=== PATIENT | male | born 1990 | race Caucasian/White ===

== ENCOUNTER → 2016-10-28 | Outpatient (CLI) | payer OTHER ==
[~2016-10-28] MED LIST: CLIN300C; METO10TA2; PERCOCET PO; TYLE325T5 PO; VICO5TAB
--- NOTE | 2016-10-29 01:50 | REP ---
Clinical: Chest pain with history of pneumonia. Technique: PA and lateral. Comparison: 07/08/2016. Findings: Mediastinum and cardiac silhouette are within normal limits and stable. Lung chadwick demonstrate chronic linear plate-like atelectasis/scarring in the right mid lung zone. No acute consolidation, effusion, or pneumothorax. Skeletal structures intact. Impression: Chronic stable changes. No acute cardiopulmonary process or focal consolidation Signed by Min Mcwilliams MD 10/29/2016 01:43 A
== END | disposition home or self-care (01) ==
LOC: M RAD 11:47
PROVIDERS: ATTEND Internal Medicine Pulmonary Disease
DX: R91.8 Other nonspecific abnormal finding of lung field (principal); J98.4 Other disorders of lung

== ENCOUNTER → 2016-12-10 | Outpatient (CLI) | payer SELFPAY ==
--- NOTE | 2016-12-10 15:35 | REP ---
CT study of the chest without contrast: History: Cryptogenic organizing pneumonia. Comparison CT studies are reviewed, the most recent of these is from August 12, 2016. The most remote is dated April 25, 2009. CT findings: The lung parenchyma are much improved. There are still scattered small subcentimeter noncalcified pulmonary nodules bilaterally. None of these is over 5-6 mm. No cavitary lesion is seen. Many are improved from the August 12, [address] study[address] No new lesion is appreciated. There is a post wedge resection suture line visible in the right middle lobe distribution along the fissure unchanged. No pleural or pericardial effusion is seen. No hilar or mediastinal mass or adenopathy is observed. No adrenal lesion is seen. No splenic or hepatic lesion is observed. Impression: Lung chadwick much improved. Post surgical changes on the right. Multiple small subcentimeter nodular densities generally less prominent than on the most recent prior study. No new lesion seen. Signed by Gopal Baron MD 12/10/2016 04:27 P
== END ==
LOC: M RAD 13:48
PROVIDERS: ATTEND Internal Medicine Pulmonary Disease
DX: J84.116 Cryptogenic organizing pneumonia (principal); R91.8 Other nonspecific abnormal finding of lung field

== ENCOUNTER → 2017-06-17 | Outpatient (CLI) | payer BC, OTHER, SELFPAY ==
--- NOTE | 2017-06-17 16:55 | REP ---
Clinical: Cryptogenic organizing pneumonia. Comparison: 12/10/2016. Findings: The bilateral lung chadwick are well-aerated, relatively symmetric and clear. No focal consolidation, significant nodule, mass lesion or pleural effusion is appreciated. Small scattered areas of scarring, calcification, and noncalcified densities have either resolved or remain stable. Tracheobronchial tree is patent. No axillary, hilar, or mediastinal adenopathy is identified. Mediastinum demonstrates normal thoracic aorta and heart/pericardium. Limited upper abdomen demonstrates normal bilateral adrenal glands. Surrounding musculoskeletal structures without focal osseous abnormality. Impression: 1. No acute mediastinal or pleuroparenchymal process. 2. Previously identified scattered areas of interstitial prominence and small nodular densities have either resolved or remain stable. Signed by Min Mcwilliams MD 06/17/2017 04:47 P
== END ==
LOC: M RAD 16:08
PROVIDERS: ATTEND Internal Medicine Pulmonary Disease
DX: J84.116 Cryptogenic organizing pneumonia (principal); R91.8 Other nonspecific abnormal finding of lung field

== ENCOUNTER 2018-06-26 04:43 | Emergency (ER) | payer SELFPAY, BC, OTHER ==
[2018-06-26] MEDS: LIDOCAINE 2% MDV 20 ML VIAL SC (06:00)
[2018-06-26] MEDS: ADACEL/BOOSTRIX VACCINE (DIPHTH/PERTUSS/ACELL/TETANUS)0.5ML SYR (90715) IM (06:25)
== END 2018-06-26 07:40 | disposition home or self-care (01) ==
LOC: M ED 04:43
DX: S01.01XA Laceration without foreign body of scalp, initial encounter (principal); S01.311A Laceration without foreign body of right ear, initial encounter; F10.120 Alcohol abuse with intoxication, uncomplicated; W25.XXXA Contact with sharp glass, initial encounter; Y92.89 Other specified places as the place of occurrence of the external cause; F17.210 Nicotine dependence, cigarettes, uncomplicated; Z86.711 Personal history of pulmonary embolism
CPT/HCPCS: 90715

== ENCOUNTER 2018-07-03 09:28 | Emergency (ER) | payer SELFPAY | END 2018-07-03 10:05 | disposition home or self-care (01) | LOC: M ED 09:28 | DX: Z48.02 Encounter for removal of sutures (principal) | CPT/HCPCS: 99283 ==

== ENCOUNTER 2018-08-17 20:08 | Emergency (ER) | payer BC, SELFPAY ==
[2018-08-17 20:52] LABS: HEMATOCRIT 41.7 % (42.0-52.0); HEMOGLOBIN 13.5 g/dl (13.5-17.5); MEAN CORPUSCULAR HEMOGLOBIN 20.8 pg (27.0-33.0); MEAN CORPUSCULAR HGB CONC 32.4 g/dl (32.0-36.5); MEAN CORPUSCULAR VOLUME 64.4 fl (80.0-96.0); PLATELET COUNT, AUTOMATED 316 10^3/uL (150-450); RED BLOOD COUNT 6.48 10^6/uL (4.30-6.10); RED CELL DISTRIBUTION WIDTH 17.3 % (11.5-14.5); WHITE BLOOD COUNT 10.9 10^3/uL (4.0-10.0)
[2018-08-17 21:00] LABS: AMPHETAMINES LEVEL URINE NEGATIVE (NEGATIVE); BARBITURATES URINE NEGATIVE (NEGATIVE); BENZODIAZEPINES URINE NEGATIVE (NEGATIVE); CANNABINOIDS URINE NEGATIVE (NEGATIVE); COCAINE METABOLITE URINE NEGATIVE (NEGATIVE); METHADONE URINE NEGATIVE (NEGATIVE); OPIATES URINE NEGATIVE (NEGATIVE); PHENCYCLIDINE URINE NEGATIVE (NEGATIVE)
[2018-08-17] MEDS: LORazepam 2 MG/ML VIAL (J2060) IV (21:00)
[2018-08-17 21:22] LABS: ACETAMINOPHEN LEVEL < 2.0 UG/ML (10.0-30.0); ALBUMIN 4.3 GM/DL (3.2-5.2); ALBUMIN/GLOBULIN RATIO 1.48 (1.00-1.93); ALKALINE PHOSPHATASE 79 U/L (45-117); ALT/SGPT 48 U/L (12-78); ANION GAP 8 MEQ/L (8-16); AST/SGOT 29 U/L (7-37); BILIRUBIN,DIRECT 0.2 MG/DL (0.0-0.2); BILIRUBIN,TOTAL 0.8 MG/DL (0.2-1.0); BLOOD UREA NITROGEN 12 MG/DL (7-18); CALCIUM LEVEL 9.3 MG/DL (8.5-10.1); CARBON DIOXIDE LEVEL 26 MEQ/L (21-32); CHLORIDE LEVEL 104 MEQ/L (98-107); CREATININE FOR GFR 1.08 MG/DL (0.70-1.30); ETHYL ALCOHOL (ETHANOL) 0.078 % (0.000-0.010); GLOMERULAR FILTRATION RATE > 60.0 (>60); GLUCOSE, FASTING 71 MG/DL (70-100); POTASSIUM SERUM 3.7 MEQ/L (3.5-5.1); SALICYLATE LEVEL 3.5 MG/DL (5.0-30.0); SODIUM LEVEL 138 MEQ/L (136-145); TOTAL PROTEIN 7.2 GM/DL (6.4-8.2)
[2018-08-17] MEDS: MULTIVITAMIN -ADULT INJECTION 10 ML, THIAMINE INJection 100 MG, FOLIC ACID 1 MG in NS 1... IV (21:40)
[2018-08-18] MEDS: OXAZEPAM 15 MG CAP PO (07:45)
== END 2018-08-18 11:21 ==
LOC: M ED 20:08
DX: R45.851 Suicidal ideations (principal); F17.210 Nicotine dependence, cigarettes, uncomplicated; Z81.8 Family history of other mental and behavioral disorders
CPT/HCPCS: J2060

== ENCOUNTER → 2018-08-29 | Outpatient (CLI) | payer BC | LOC: M OUTALCOH 07:58 | DX: F10.20 Alcohol dependence, uncomplicated (principal); F15.20 Other stimulant dependence, uncomplicated ==

== ENCOUNTER → 2018-09-15 | Outpatient (REF) | payer BC ==
[2018-09-20 14:17] LABS: AMPHETAMINE SCREEN, URINE Negative ng/mL (Cutoff=1000); BARBITURATES SCREEN, URINE Negative ng/mL (Cutoff=200); BENZODIAZEPINES, URINE SCREEN Negative ng/mL (Cutoff=200); CANNABINOID SCREEN, URINE See Final Results ng/mL (Cutoff=20); CANNABINOID, URINE Positive (Cutoff=20); CARBOXY THC (GC/MS) 75 ng/mL (Cutoff=10); COCAINE SCREEN, URINE Negative ng/mL (Cutoff=300); CREATININE, URINE 132.7 mg/dL (20.0-300.0); FENTANYL URINE SCREEN Negative pg/mL (Cutoff=2000); METHADONE, URINE SCREEN Negative ng/mL (Cutoff=300); OPIATE SCREEN, URINE Negative ng/mL (Cutoff=300); OXYCODONE, SCREEN, URINE Negative ng/mL (Cutoff=100); PCP SCREEN, URINE Negative ng/mL (Cutoff=25); SPECIFIC GRAVITY, URINE 1.024 (.); pH, URINE 5.8 (4.5-8.9)
== END ==
LOC: M SFHCPLAZ 16:55
DX: Z87.898 Personal history of other specified conditions (principal)

== ENCOUNTER 2020-03-11 20:47 | Emergency (ER) | payer BC, MEDICAID, OTHER ==
[~2020-03-11] VITALS: Ht 180.3 cm; Wt 101.6 kg
[2020-03-11 20:47] VITALS: BP 132/84
[2020-03-11] MEDS ORDERED: LIDOCAINE W/EPINEPHRINE 1% 20ML VIAL SC ONE (21:30)
== END 2020-03-11 21:55 | disposition home or self-care (01) ==
LOC: M ED 20:47
DX: S61.411A Laceration without foreign body of right hand, initial encounter (principal); W26.0XXA Contact with knife, initial encounter; Y92.000 Kitchen of unspecified non-institutional (private) residence as the place of occurrence of the external cause; Y93.E9 Activity, other interior property and clothing maintenance; Y99.9 Unspecified external cause status

== ENCOUNTER 2020-08-31 11:58 | Emergency (ER) | payer OTHER ==
[~2020-08-31] VITALS: Ht 180.3 cm; Wt 90.1 kg
[2020-08-31] MEDS ORDERED: MORPHINE 4 MG/ML 1ML VIAL/SYRINGE (J2270) IV ONE (14:15)
[2020-08-31] MEDS ORDERED: ONDANSETRON 4MG/2ML VIAL IV ONE (14:15)
--- NOTE | 2020-08-31 14:36 | REP ---
INDICATION: sob, pleuritic cp COMPARISON: 10/28/2016 TECHNIQUE: PA and lateral. FINDINGS: The mediastinum and cardiac silhouette are normal. The lung chadwick are clear and without acute consolidation, effusion, or pneumothorax. The skeletal structures are intact and normal. IMPRESSION: No acute cardiopulmonary process. <Electronically signed by Min Mcwilliams > 08/31/20 [id number]
[2020-08-31 14:46] LABS: BASO % 0.3 % (0.0-1.0); EOS # 0.1 10^3/uL (0.0-0.5); EOS % 0.3 % (0.0-3.0); HEMATOCRIT 43.3 % (42.0-52.0); HEMOGLOBIN 13.1 g/dl (13.5-17.5); LYMPH # 2.5 10^3/uL (1.5-5.0); LYMPH % 16.4 % (24.0-44.0); MEAN CORPUSCULAR HEMOGLOBIN 18.4 pg (27.0-33.0); MEAN CORPUSCULAR HGB CONC 30.3 g/dl (32.0-36.5); MEAN CORPUSCULAR VOLUME 60.7 fl (80.0-96.0); MONO # 1.6 10^3/uL (0.0-0.8); MONO % 10.6 % (0.0-5.0); NEUTROPHILS % 71.9 % (36.0-66.0); PLATELET COUNT, AUTOMATED 234 10^3/uL (150-450); RED BLOOD COUNT 7.13 10^6/uL (4.30-6.10); WHITE BLOOD COUNT 15.3 10^3/uL (4.0-10.0)
[2020-08-31] MEDS ORDERED: ISOVUE-370 76% 100ML VIAL As Ordered ONE (15:08)
[2020-08-31 15:09] LABS: ERYTHROCYTE SEDIMENTATION RATE 5 mm/hr (0-15)
[2020-08-31 15:12] LABS: ALBUMIN 3.1 GM/DL (3.2-5.2); ALT/SGPT 74 U/L (12-78); BILIRUBIN,DIRECT 0.3 MG/DL (0.0-0.2); BILIRUBIN,TOTAL 0.7 MG/DL (0.2-1.0); C REACTIVE PROTEIN QUANTITATIV 9.11 MG/DL (0.00-0.30); CK-MB VALUE MASS < 1.0 NG/ML (<3.6); CPK CREATINE PHOSPHOKINASE 57 U/L (39-308); LIPASE 103 U/L (73-393); MB/CK RELATIVE INDEX 1.75 (< OR =4); TOTAL PROTEIN 7.1 GM/DL (6.4-8.2); TROPONIN I < 0.02 NG/ML (< 0.10)
--- NOTE | 2020-08-31 15:34 | REP ---
INDICATION: r/o PE COMPARISON: 06/17/2017 TECHNIQUE: Axial contrast enhanced images from the thoracic inlet to the upper abdomen using pulmonary embolus technique with multiplanar re-formations. 75 ml Isovue 370 intravenous contrast material administered without complication. This CT examination was performed using the following dose reduction techniques: Automated exposure control, adjustment of mA and/or kv according to the patient's size, and use of iterative reconstruction technique. FINDINGS: Satisfactory enhancement of the pulmonary vasculature is achieved and no filling defects are identified to suggest pulmonary embolus. Further evaluation of the mediastinum demonstrates normal thoracic aorta, heart and pericardium. The bilateral lung chadwick are well aerated and clear without consolidation pleural effusion or pneumothorax. Tracheobronchial tree is patent. 3 mm nodule adjacent to the right major fissure (image 47) noted. No adenopathy noted. Surrounding musculoskeletal structures intact IMPRESSION: No evidence for pulmonary embolus. No acute mediastinal or pleural parenchymal process. 3 mm nodule in the right upper lobe. Based on Fleischner society criteria, low risk patients require no further investigation while high risk patients may warrant 1 year follow-up. <Electronically signed by Min Mcwilliams > 08/31/20 [id number]
--- NOTE | 2020-08-31 15:41 | REP ---
INDICATION: r/o peritonsillar abscess. COMPARISON: None. TECHNIQUE: Axial contrast-enhanced images were obtained from the thoracic inlet to the skull base with coronal and sagittal reformations using 100 cc Isovue 370 intravenous contrast material. This CT examination was performed using the following dose reduction techniques: Automated exposure control, adjustment of mA and/or kv according to the patient's size, and the use of iterative reconstruction technique. FINDINGS: Left parapharyngeal/peritonsillar multiloculated abscess is identified measuring roughly 11 x 23 x 32 mm with surrounding inflammatory change having mass effect on the airway which remains patent (series 501; images 16-40). Associated cervical adenopathy noted. Remainder of the examination appears relatively normal. Mild mucosal changes to the frontal/ethmoid sinuses noted. Perimolar abscess surrounding the posterior left mandibular molar tooth possibly related to the above-mentioned inflammatory process. IMPRESSION: 1. Left parapharyngeal/peritonsillar abscess with surrounding inflammatory changes and cervical adenopathy. <Electronically signed by Min Mcwilliams > 08/31/20 [id number]
[2020-08-31] MEDS ORDERED: dexameTHASONE 20MG/5ML VIAL (J1100 PER 1MG) IV ONE (16:00)
[2020-08-31] MEDS ORDERED: NS 1,000 ML IV ONE (16:00)
[2020-08-31] MEDS ORDERED: AMPICILLIN SOD/SULBACTAM SOD 3 GM in D5W MINI-BAG PLUS 100 ML IV ONE (16:00)
--- NOTE | 2020-08-31 18:34 | ECGEPIP ---
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
[2020-08-31 18:35] VITALS: BP 141/86
--- NOTE | 2020-09-02 11:09 | ED PDOC ---
Post-Departure Follow-Up certified letter sent to pt re pulmonary nodule. pt needs fu. please obtain pcp and fax report. if no pcp refer to [facility] and fax ct angio report . Jesenia Morales MD Sep 02, 2020 11:09
== END 2020-08-31 18:44 | disposition short-term general hospital (02) ==
LOC: M ED 11:58
DX: J36 Peritonsillar abscess (principal); R91.1 Solitary pulmonary nodule; F41.9 Anxiety disorder, unspecified; F32.9 Major depressive disorder, single episode, unspecified; J98.4 Other disorders of lung; Z86.711 Personal history of pulmonary embolism; F17.200 Nicotine dependence, unspecified, uncomplicated
CPT/HCPCS: 36415; 70491; 71046; 71275; 80047; 80076; 82550; 82553; 83690; 85025; 85379; 85652; 86140; 87880; 93005; 96365; 96375; 99285; J1100; J2270; J2405; Q9967; U0002

== ENCOUNTER 2020-09-02 06:57 | Emergency (ER) | payer OTHER ==
[~2020-09-02] VITALS: Ht 182.9 cm; Wt 90.0 kg
[2020-09-02] MEDS ORDERED: AMOX875T2 PO (07:07)
[2020-09-02] MEDS ORDERED: PERI12LIQ (07:07)
[2020-09-02] MEDS ORDERED: HYDR-4571 PO (07:07)
[2020-09-02 08:17] LABS: HEMATOCRIT 38.1 % (42.0-52.0); HEMOGLOBIN 11.8 g/dl (13.5-17.5); MEAN CORPUSCULAR HEMOGLOBIN 18.8 pg (27.0-33.0); MEAN CORPUSCULAR VOLUME 60.6 fl (80.0-96.0); PLATELET COUNT, AUTOMATED 307 10^3/uL (150-450); RED BLOOD COUNT 6.29 10^6/uL (4.30-6.10); WHITE BLOOD COUNT 14.9 10^3/uL (4.0-10.0)
[2020-09-02] MEDS ORDERED: dexameTHASONE 20MG/5ML VIAL (J1100 PER 1MG) IV ONE (08:45)
[2020-09-02] MEDS ORDERED: ONDANSETRON 4MG/2ML VIAL IV ONE (08:45)
[2020-09-02] MEDS ORDERED: NS 1,000 ML IV ONE (08:45)
[2020-09-02] MEDS ORDERED: AMPICILLIN SOD/SULBACTAM SOD 3 GM in D5W MINI-BAG PLUS 100 ML IV ONE (08:45)
[2020-09-02] MEDS ORDERED: MORPHINE 4 MG/ML 1ML VIAL/SYRINGE (J2270) IV ONE (08:45)
[2020-09-02 09:06] LABS: BLOOD UREA NITROGEN 15 MG/DL (7-18); C REACTIVE PROTEIN QUANTITATIV 6.12 MG/DL (0.00-0.30); CALCIUM LEVEL 8.4 MG/DL (8.5-10.1); CARBON DIOXIDE LEVEL 24 MEQ/L (21-32); CHLORIDE LEVEL 107 MEQ/L (98-107); CREATININE FOR GFR 0.73 MG/DL (0.70-1.30); GLOMERULAR FILTRATION RATE > 60.0 (>60); GLUCOSE, FASTING 84 MG/DL (70-100); POTASSIUM SERUM 3.6 MEQ/L (3.5-5.1); SODIUM LEVEL 139 MEQ/L (136-145)
[2020-09-02 09:14] LABS: ERYTHROCYTE SEDIMENTATION RATE 15 mm/hr (0-15)
[2020-09-02] MEDS ORDERED: ISOVUE-370 76% 100ML VIAL As Ordered ONE (09:14)
--- NOTE | 2020-09-02 09:48 | REP ---
INDICATION: peritonsillar abscess, symptoms worsening. COMPARISON: Comparison soft tissue neck CT study 31 August 2020.. TECHNIQUE: 75 mL of intravenous Isovue 370 is administered. Helical scanning is acquired. 3 mm axial images re-formatted. Coronal and sagittal MPR images are included. FINDINGS: There is partial opacification of bilateral ethmoid air cells consistent with paranasal sinus disease. There is a small mucous retention cyst in the floor of the left maxillary sinus. Nasal jewelry is noted incidentally. No intraorbital abnormality or intracranial abnormality is seen. The previously noted left tonsillar abscess is again seen and and has become more walled off. There is more mass effect. The low-density collection measures 2.2 x 2.6 x 3.1 cm. There are carious changes in posterior maxillary molars bilaterally. In addition, there is periodontal low-density surrounding the roots of the 2 posterior mandibular molars on the left consistent with periodontal cyst formation. There are a few shotty subcentimeter left cervical lymph nodes and right cervical lymph nodes. Parotid and submandibular glands are normal and symmetric. There is a left submandibular lymph node which is slightly hypertrophied, only 5 mm in short axis dimension. Thyroid lobes are normal and symmetric. Lung apices are clear. No glottic or subglottic airway lesion is seen. There is narrowing of the oropharyngeal airway from the tonsillar abscess. A normal epiglottis is visible. IMPRESSION: Interval increase in the size of the known left peritonsillar abscess now 2.2 x 2.6 x 3.1 cm. Narrowing of the adjacent oropharyngeal nasopharyngeal airway. <Electronically signed by Rafael Baron > 09/02/20 [id number]
[2020-09-02 10:35] VITALS: BP 125/68
== END 2020-09-02 10:40 | disposition home or self-care (01) ==
LOC: M ED 06:57
DX: J36 Peritonsillar abscess (principal); Z79.2 Long term (current) use of antibiotics
CPT/HCPCS: 70491; 80048; 83605; 85027; 85652; 86140; 87040; 94760; 96365; 96375; 99284; J1100; J2270; J2405; Q9967

== ENCOUNTER → 2020-11-06 | Outpatient (CLI) | payer OTHER ==
[~2020-11-06] MED LIST changes: +AMOX875T2 PO; +HYDR-4571 PO; +PERI12LIQ
== END ==
LOC: M LABSMTC 12:40
PROVIDERS: ATTEND Anesthesiology
DX: Z01.812 Encounter for preprocedural laboratory examination (principal); Z20.822 Contact with and (suspected) exposure to COVID-19

== ENCOUNTER → 2021-08-08 | Outpatient (CLI) | payer OTHER ==
[2021-08-08 10:18] LABS: BASO # 0.1 10^3/uL (0.0-0.2); EOS # 0.4 10^3/uL (0.0-0.5); EOS % 5.3 % (0.0-3.0); HEMATOCRIT 38.8 % (42.0-52.0); HEMOGLOBIN 11.8 g/dl (13.5-17.5); LYMPH # 3.3 10^3/uL (1.5-5.0); LYMPH % 47.2 % (24.0-44.0); MEAN CORPUSCULAR HEMOGLOBIN 19.1 pg (27.0-33.0); MEAN CORPUSCULAR HGB CONC 30.4 g/dl (32.0-36.5); MEAN CORPUSCULAR VOLUME 62.8 fl (80.0-96.0); MONO # 0.6 10^3/uL (0.0-0.8); MONO % 8.3 % (2.0-8.0); NEUTROPHILS # 2.6 10^3/uL (1.5-8.5); NEUTROPHILS % 37.9 % (36.0-66.0); PLATELET COUNT, AUTOMATED 339 10^3/uL (150-450); RED BLOOD COUNT 6.18 10^6/uL (4.30-6.10)
[2021-08-08 10:56] LABS: ALBUMIN 3.6 GM/DL (3.2-5.2); ALT/SGPT 47 U/L (12-78); BILIRUBIN,TOTAL 0.4 MG/DL (0.2-1.0); BLOOD UREA NITROGEN 19 MG/DL (7-18); CALCIUM LEVEL 9.1 MG/DL (8.5-10.1); CARBON DIOXIDE LEVEL 29 MEQ/L (21-32); CHLORIDE LEVEL 108 MEQ/L (98-107); CHOLESTEROL LEVEL 127 MG/DL (<200); CHOLESTEROL RISK RATIO 3.735 (<5); CREATININE FOR GFR 0.93 MG/DL (0.70-1.30); FREE T4 0.85 NG/DL (0.76-1.46); GLOMERULAR FILTRATION RATE > 60.0 (>60); GLUCOSE, FASTING 94 MG/DL (70-100); HDL CHOLESTEROL 34 MG/DL (>40); LDL CHOLESTEROL 87 MG/DL (<100); NON-HDL-C 93 MG/DL; POTASSIUM SERUM 4.5 MEQ/L (3.5-5.1); SODIUM LEVEL 140 MEQ/L (136-145); THYROID STIMULATING HORMONE 0.571 uIU/ML (0.358-3.740); TOTAL PROTEIN 6.5 GM/DL (6.4-8.2); TRIGLYCERIDES LEVEL 30 MG/DL (<150)
== END ==
LOC: M PLALAB 08:25
PROVIDERS: ATTEND Physician Assistant Medical
DX: B35.3 Tinea pedis (principal)

== ENCOUNTER 2021-08-29 11:41 | Emergency (ER) | payer OTHER ==
[~2021-08-29] VITALS: Ht 182.9 cm; Wt 100.7 kg
[2021-08-29 11:42] VITALS: BP 132/78
--- OUTSIDE RECORDS SUMMARY | 2021-08-29 11:49 | CCD ---
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 Role Phone Cher Gomez MD Unavailable Unavailable Cher Gomez MD Unavailable Unavailable Cher Gomez MD Unavailable Unavailable Cher Gomez MD Unavailable Unavailable Cher Gomez MD Unavailable Unavailable Cher Gomez MD Unavailable Unavailable Cher Gomez MD Unavailable Unavailable Cher Gomez MD Unavailable Unavailable Cher Gomez MD Unavailable Unavailable Cher Gomez MD Unavailable Unavailable Cher Gomez MD Unavailable Unavailable Cher Gomez MD Unavailable Unavailable Cher Gomez MD Unavailable Unavailable Abriss, Cher Weinstein MD Unavailable Unavailable Abriss, Cher Weinstein MD Unavailable Unavailable Abriss, B Js GREEN Unavailable Unavailable Abriss, B Js GREEN Unavailable Unavailable Abriss, B Js GREEN Unavailable Unavailable Abriss, B Js GREEN Unavailable Unavailable LEIGHANN, K ALEKSANDR GREEN Unavailable Unavailable LEIGHANN, K ALEKSANDR GREEN Unavailable Unavailable LEIGHANN, K ALEKSANDR GREEN Unavailable Unavailable LEIGHANN, K ALEKSANDR GREEN Unavailable Unavailable LEIGHANN, K ALEKSANDR GREEN Unavailable Unavailable LEIGHANN, K ALEKSANDR GREEN Unavailable Unavailable LEIGHANN, K ALEKSANDR GREEN Unavailable Unavailable LEIGHANN, K ALEKSANDR GREEN Unavailable Unavailable LEIGHANN, K ALEKSANDR GREEN Unavailable Unavailable LEIGHANN, K ALEKSANDR GREEN Unavailable Unavailable LEIGHANN, K ALEKSANDR MD Unavailable Unavailable LEIGHANN, K ALEKSANDR MD Unavailable Unavailable LEIGHANN, K ALEKSANDR MD Unavailable Unavailable LEIGHANN, K ALEKSANDR MD Unavailable Unavailable LEIGHANN, K ALEKSANDR MD Unavailable Unavailable Jamila II, Aleksandr PA Unavailable Unavailable Jamila II, Aleksandr PA Unavailable Unavailable Jamila II, Aleksandr PA Unavailable Unavailable Jamila II, Aleksandr PA Unavailable Unavailable Jamila II, Aleksandr PA Unavailable Unavailable Jamila II, Aleksandr PA Unavailable Unavailable Jamila II, Aleksandr PA Unavailable Unavailable Jamila II, Aleksandr PA Unavailable Unavailable Jamila II, Aleksandr PA Unavailable Unavailable Jamila II, Aleksandr PA Unavailable Unavailable Jamila II, Aleksandr PA Unavailable Unavailable Jamila II, Aleksandr PA Unavailable Unavailable Jamila II, Aleksandr PA Unavailable Unavailable Jamila II, Aleksandr PA Unavailable Unavailable Jamila II, Aleksandr PA Unavailable Unavailable Jamila II, Aleksandr PA Unavailable Unavailable Jamila II, Aleksandr PA Unavailable Unavailable Jamila II, Aleksandr PA Unavailable Unavailable Jamila II, Aleksandr PA Unavailable Unavailable Re-disclosure Warning The records that you are about to access may contain information from federally-assisted alcohol or drug abuse programs. If such information is present, then the following federally mandated warning applies: This information has been disclosed to you from records protected by federal confidentiality rules (42 CFR part 2). The federal rules prohibit you from making any further disclosure of this information unless further disclosure is expressly permitted by the written consent of the person to whom it pertains or as otherwise permitted by 42 CFR part 2. A general authorization for the release of medical or other information is NOT sufficient for this purpose. The Federal rules restrict any use of the information to criminally investigate or prosecute any alcohol or drug abuse patient.The records that you are about to access may contain highly sensitive health information, the redisclosure of which is protected by Article 27-F of the [facility] Public Health law. If you continue you may have access to information: Regarding HIV / AIDS; Provided by facilities licensed or operated by the [facility] Office of Mental Health; or Provided by the [facility] Office for People With Developmental Disabilities. If such information is present, then the following [facility] mandated warning applies: This information has been disclosed to you from confidential records which are protected by state law. State law prohibits you from making any further disclosure of this information without the specific written consent of the person to whom it pertains, or as otherwise permitted by law. Any unauthorized further disclosure in violation of state law may result in a fine or halfway sentence or both. A general authorization for the release of medical or other information is NOT sufficient authorization for further disc losure. Allergies and Adverse Reactions Type Description Substance Reaction Status Data Source(s ) Propensity to adverse reactions NO KNOWN ALLERGIES NO KNOWN ALLERGIES [facility] Family History Family Member Name Family Member Gender Family Member Status Date o f Status Description Data Source(s) Unknown Male Problem MEDENT ([facility]) Unknown Female Problem [facility] ([facility] Unknown Female Problem MEDENT ([facility] Encounters Encounter Providers Location Date Indications Data Source(s ) Unknown [address] [facility] [place] [id number] 08/25/2021 12:00:00 AM EST eCW1 ([facility]) Unknown [address] [facility] [place] [id number] 08/12/2021 12:00:00 AM EST eCW1 ([facility]) Unknown [address] [facility] [place] [address] 07/08/2021 12:00:00 AM EDT eCW1 ([facility]) Outpatient [address] [facility] [place] [address] 05/15/2021 12:00:00 AM EDT eCW1 ([facility]) Office Visit Attender: Aleksandr Chandler/Melchor/Ramesh/Rein dl 09/09/2020 09:15:00 AM EST MEDENT ([facility], ) Outpatient Attender: Js Chandler/Melchor/Ramesh/Re indl 09/02/2020 09:30:00 AM EST MEDENT ([facility], ) Emergency Attender: ALEKSANDR LAWTON MD 07A-ERMADULT 08/05 12:00:00 AM EST - 08/31/2020 10:23:00 PM EST Peritonsillar abscess [facility] Peritonsillar abscess Patient discharged. Immunizations Vaccine Date Status Description Data Source(s) influenza, recombinant, quadrIvalent,injectable, prese rvative free 08/04/2021 11:10:00 AM EDT completed eCW1 ([facility]) influenza, recombinant, quadrIvalent,injectable, prese rvative free 08/04/2021 11:10:00 AM EDT completed eCW1 ([facility]) COVID-19 VACCINE Moderna 01/23/2021 12:00:00 AM EDT completed [facility] Vaccine Series Complete: YESThis Data wa s Submitted to [facility] [employer]. COVID-19 VACCINE Moderna 12/26/2020 12:00:00 AM EDT completed [facility] Vaccine Series Complete: NOThis Data was Submitted to [facility] [employer]. Medications Medication Brand Name Start Date Product Form Dose Route Admi nistrative Instructions Pharmacy Instructions Status Indications Reaction Description Data Source(s) 1 % 08/06/2021 12:00:00 AM EDT cream 30 APPLY 1 APPLICATION EXTERNALLY TWO TIMES A DAY APPLY 1 APPLICATION EXTERNALLY TWO TIMES A DAY SOLD: 08/07/2021 [facility] Diphenhydramine Hydrochloride 1.67 MG/ML Oral Solution [Wal-Sleep Z] Tolnaftate 1 % Tolnaftate 1 % 08/04/2021 12:00:00 AM EDT 1.0 {application} active Tolnaftate 1 % eCW1 ([facility]) Diphenhydramine Hydrochloride 1.67 MG/ML Oral Solution [Wal-Sleep Z] Tolnaftate 1 % Tolnaftate 1 % 08/04/2021 12:00:00 AM EDT 1.0 {application} active Tolnaftate 1 % eCW1 ([facility]) 800 mg 06/23/2021 12:00:00 AM EDT tablet 20 TAKE ONE TABLET BY MOUTH EVERY 6 HOURS NEEDED FOR PAIN MAXIMUM DAILY DOSE = 4 TABLETS TAKE ONE TABLET BY MOUTH EVERY 6 HOURS NEEDED FOR PAIN MAXIMUM DAILY DOSE = 4 TABLETS SOLD: 06/23/2021 [facility] 0.12 % 06/23/2021 12:00:00 AM EDT mouthwash 473 USE 15ML BY MOUTH TO SWISH FOR 30 SECONDS AND SPIT FOUR TIMES A DAY USE 15ML BY MOUTH TO SWISH FOR 30 SECONDS AND SPIT FOUR TIMES A DAY SOLD: 06/23/2021 [facility] Amoxicillin 875 MG / Clavulanate 125 MG Oral Tablet 87 5-125 mg AMOXICILLIN/POTASSIUM CLAV 05/20/2021 12:00:00 AM EDT tablet 14 TAKE ONE TABLET BY MOUTH TWICE A DAY WITH FOOD UNTIL GONE TAKE ONE TABLET BY MOUTH TWICE A DAY WITH FOOD UNTIL GONE SOLD: 05/20/2021 [facility] Triamcinolone Acetonide 1 MG/ML Topical Cream Triamcin olone Acetonide 0.1 % Triamcinolone Acetonide 0.1 % 05/15/2021 12:00:00 AM EDT active Triamcinolone Acetonide 0.1 % eCW1 ([facility]) Diphenhydramine Hydrochloride 1.67 MG/ML Oral Solution [Wal-Sleep Z] Tolnaftate 1 % Tolnaftate 1 % 05/15/2021 12:00:00 AM EDT 1.0 {application} active Tolnaftate 1 % eCW1 ([facility]) Diphenhydramine Hydrochloride 1.67 MG/ML Oral Solution [Wal-Sleep Z] Tolnaftate 1 % Tolnaftate 1 % 05/15/2021 12:00:00 AM EDT 1.0 {application} active Tolnaftate 1 % eCW1 ([facility]) Diphenhydramine Hydrochloride 1.67 MG/ML Oral Solution [Wal-Sleep Z] Tolnaftate 1 % Tolnaftate 1 % 05/15/2021 12:00:00 AM EDT 1.0 {application} active Tolnaftate 1 % eCW1 ([facility]) Triamcinolone Acetonide 1 MG/ML Topical Cream Triamcin olone Acetonide 0.1 % Triamcinolone Acetonide 0.1 % 05/15/2021 12:00:00 AM EDT active Triamcinolone Acetonide 0.1 % eCW1 ([facility]) Diphenhydramine Hydrochloride 1.67 MG/ML Oral Solution [Wal-Sleep Z] Tolnaftate 1 % Tolnaftate 1 % 05/15/2021 12:00:00 AM EDT 1.0 {application} active Tolnaftate 1 % eCW1 ([facility]) Triamcinolone Acetonide 1 MG/ML Topical Cream Triamcin olone Acetonide 0.1 % Triamcinolone Acetonide 0.1 % 05/15/2021 12:00:00 AM EDT active Triamcinolone Acetonide 0.1 % eCW1 ([facility]) Triamcinolone Acetonide 1 MG/ML Topical Cream Triamcin olone Acetonide 0.1 % Triamcinolone Acetonide 0.1 % 05/15/2021 12:00:00 AM EDT active Triamcinolone Acetonide 0.1 % eCW1 ([facility]) morphine sulfate (PF) injection 4 mg [id number] 08/31/2020 08:45: 00 PM EST 4 mg Intravenous completed 4 mg, In travenous, Once, 08/31/20 at 2044, For 1 dose [facility] Medication administered onsite sodium chloride 0.9 % bolus 1,000 mL [id number] 08/31/2020 08:45: 00 PM EST 1000 mL Intravenous completed 1,000 mL , Intravenous, Once, 08/31/20 at 2044, For 1 dose [facility] Medication administered onsite Amoxicillin 875 MG / Clavulanate 125 MG Oral Tablet Amoxicillin-Pot Clavulanate 875-125 MG Oral Tablet (AUGMENTIN) Amoxicillin-Pot Clavulanate 875-125 MG O ral Tablet (AUGMENTIN) 08/31/2020 12:00:00 AM EST 1 {tbl} Oral active Take 1 tablet by mouth Two Times Daily for 10 days [facility] Acetaminophen 325 MG / Hydrocodone Julieth trate 5 MG Oral Tablet HYDROcodone- Acetaminophen 5-325 MG Oral Tablet (LORTAB) HYDROcodone-Acetaminophen 5-325 MG Oral Tablet (LORTAB) 08/31/2020 12:00:00 AM EST 1 {tbl} Oral active Peritonsillar abscess Take 1 tablet by mouth every 6 (six) hours as needed for Pain (acute) for up to 3 days, Max Daily Dose: 4 tablets [facility] Peritonsillar abscess chlorhexidine gluconate 1.2 MG/ML Mouthw priscilla Chlorhexidine Gluconate 0.12 % Mouth/Throat Solution (Peridex) Chlorhexidine Gluconate 0.12 % Mouth/Thr oat Solution (Peridex) 08/31/2020 12:00:00 AM EST 15 mL Mouth/Throat active Use as directed 15 mLs in the mouth or throat Two Time s Daily [facility] Insurance Providers Payer name Policy type / Coverage type Policy ID Covered green party ID Covered green party's relationship to andrew Policy Andrew Plan Information [place] 280/780 [id number] MICHAEL EXCHANGE U [id number] Self [id number] [place] 302/307 [id number] SP [id number] BLUE CROSS [id number] S [id number] BLUE CROSS [id number] S [id number] MICHAEL I [id number] Self [id number] MICHAEL I [id number] Self [id number] SELF PAY UNAVAILABLE SP UNAVAILA BLE SELF PAY ONLY [id number] Excell[employer] BCBS P [id number] S [id number] Excell[employer] BCYO P [id number] S [id number] ANSI-Commercial [id number] [place] 306/806 [id number] SP [id number] [place] P[place] 302/307 [id number] SP [id number] SELF-PAY UNAVAILABLE S UNAVAILA BLE MICHAEL [facility] [place] [id number] SP [id number] EXCELLUS BCBS B [id number] S [id number] [facility] COMMUNITY PLAN [facility] [id number] SP [id number] Excell[employer] BCYO P [id number] S [id number] Self Pay S UNAVAILABLE S UNAVAILA BLE Excell[employer] BCYO P UNAVAILABLE S UNAV AILABLE SELF PAY ONLY [id number] SP [id number] [facility] (O) [id number] Se lf [place] Medicaid/CHP/FHP Commercial Essential Plan 1 [id number] Self Essential Plan 1 [facility] [id number] SP [id number] MICHAEL [place] [id number] SP [id number] [facility] [place] XIX MAN [id number] 18 [id number] SELF PAY ONLY [id number] SP [id number] MICHAEL [id number] SP [id number] [facility] [id number] SP [id number] [place] [id number] S [id number] Self Pay P none S none [id number] SP [id number] BCBS [facility] [id number] SP [id number] SELF PAY ONLY UNAVAILABLE UNAV AILABLE BCBS OF [place] [id number] SP [id number] Problems, Conditions, and Diagnoses Code Display Name Description Problem Type Effective Dates Data Source(s) J36 Peritonsillar abscess Peritonsillar abscess Diagnosis 08/31/2020 08:05:[address] [facility] left samir-tonsilar abscess left samir-tonsilar abscess Diagnosis 08/31/2020 08:05:[address] 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 ID Date Data Source [id number] 11/11/2020 12:00:00 AM EST [facility] Name Value Range Interpretation Code Description Data Nasreen rce(s) Supporting Document(s) SARS-CoV2 Rapid Antigen Negative [facility] This lab was ordered by [facility] and reported by [facility]. ID Date Data Source [id number] 11/06/2020 12:55:00 PM EST [facility] Name Value Range Interpretation Code Description Data Nasreen rce(s) Supporting Document(s) SARS coronavirus 2 RNA Not Detected [facility] [place] This lab was ordered by [facility] and reported by [facility]. ID Date Data Source [id number] 10/06/2020 12:00:00 AM EST [facility] Name Value Range Interpretation Code Description Data Nasreen rce(s) Supporting Document(s) SARS-CoV2 Rapid Antigen [facility] This lab was ordered by [facility] and [facility] by [facility]. ID Date Data Source [id number] 09/03/2020 07:57:[address] [facility] Name Value Range Interpretation Code Description Data Nasreen rce(s) Supporting Document(s) [facility] HOOJFk4qAtFAUsRf24/QJIitXJVln7YqQLckYKd0XNgxULGlX9QxQON9xG3yAXT9MThGTyAdOxVbKsZx lb QcNksEVhQwEMGaGkqFNtHoAYgnRejrgZVlRY5IdKM3GHXeM14nVADrMNIkK0UqFRS1Pzy+Ke0HXKTkqO VuTL3UNbeP5Y7ky3xRCx3fnJ/CHPVjTRSlaWr1zgKUyXVt0yZ33wIl5F+1SJcnrbAjCAo3mb1JXg/t6B dRGmqzQBJgnbdDvmveNQefhSj//E8c+65hGCL/u/qn H1hi+CD+/WvDVRQlw1apy2YDvXbGRM0/bYX3h36+4tHSH6I6w2pEhmriB2KsEJ4OTMNFNtnlR5/mYTyc qRDi9YT8H9nLIS1t0yEIw0dYTBvv5Pxq7v1/iMF/xZuB+Rb7UtLvQAYT+kghX4JjpxZ65HIpJyyuy030 LjS6lGs1jbL4njni63Z6ADk6cRmQJOmT9oSM9AondP uc0hYes7LjLKXKDppCOEXb8ox5on1KFiuFkt8tZ9A7gZXsOxTb9GON7+JlGDzq4IeGK/DdhpamKT/Ulises [file] bottom finisher+vxt6Edvqlzxs2pI1bvpaO3BreTaOhCghlyyWgmu [file] ClEOBWDvSuHC8QDNu= ID Date Data Source [id number] 09/02/2020 06:14:[address] [facility] Name Value Range Interpretation Code Description Data Nasreen rce(s) Supporting Document(s) ED Provider Note [facility] KLEOUy0gStHWJiCf29/PFJrlWCEqo6KmKHgnIWu7SWfiCWMlP7AuVIT1nX4cCJG1MTaEByUsYdRoWWDm lbm HsCqxQWlXwIICbYmaZMuVpXCumSjspgPNdDY0JgAT9ASZmD67jRNGqFSGaS0CoZJEeMYO+Iu0HFPQbvF QbAV7TNmwQ9E3jFwNPWq6eUo9TezreRuQo5+vVUKLszz7thiEzQ6aj2VZ+QQrIK1D64+ramirez+mlqQ4BjLF 20CvcNoImALvoMH2C4yrw1MBfM//stkudnmNfWw8q/ XLpUupM23c/YEoiK2ee0+3x8zHfiXzXhRgh/Martin+Bu3rzc4rdYjgkuOR/ILUFaWOdpD9PyiViQ+ng/HJ [file] n1MYKuJkQDNFVCsu6nwoPvKX2OJfZ8CIp59ZMY7E3daIZFre3Nfqz6o+QhzzL2L3rkNUz7vK6Q+Embalmer/Funeral Director+x [file] ICAgICAgICAgICAgICAgICAgICAgICAgICAgICAgICAgICAgICAgICAgICAgICAgICAgICAgICAgICAg ICAgICAgICAgICAgDQogICAgICAgICAgICAgICAgIC AgICAgICAgICAgICAgICAgICAgICAgICAgICAgICAgICAgICAgICAgICAgICAgICAgICAgICAgICAgIC AgICAgICAgICAgICAgICAgICAgICAgDQogICAgICAgICAgICAgICAgICAgICAgICAgICAgICAgICAgIC AgICAgICAgICAgICAgICAgICAgICAgICAgICAgICAg ICAgICAgICAgICAgICAgICAgICAgICAgICAgICAgICAgDQogICAgICAgICAgICAgICAgICAgICAgICAg ICAgICAgICAgICAgICAgICAgICAgICAgICAgICAgICAgICAgICAgICAgICAgICAgICAgICAgICAgICAg ICAgICAgICAgICAgICAgDQogICAgICAgICAgICAgIC AgICAgICAgICAgICAgICAgICAgICAgICAgICAgICAgICAgICAgICAgICAgICAgICAgICAgICAgICAgIC AgICAgICAgICAgICAgICAgICAgICAgICAgDQogICAgICAgICAgICAgICAgICAgICAgICAgICAgICAgIC AgICAgICAgICAgICAgICAgICAgICAgICAgICAgICAg ICAgICAgICAgICAgICAgICAgICAgICAgICAgICAgICAgICAgDQogICAgICAgICAgICAgICAgICAgICAg ICAgICAgICAgICAgICAgICAgICAgICAgICAgICAgICAgICAgICAgICAgICAgICAgICAgICAgICAgICAg ICAgICAgICAgICAgICAgICAgDQogICAgICAgICAgIC AgICAgICAgICAgICAgICAgICAgICAgICAgICAgICAgICAgICAgICAgICAgICAgICAgICAgICAgICAgIC AgICAgICAgICAgICAgICAgICAgICAgICAgICAgDQogICAgICAgICAgICAgICAgICAgICAgICAgICAgIC AgICAgICAgICAgICAgICAgICAgICAgICAgICAgICAg ICAgICAgICAgICAgICAgICAgICAgICAgICAgICAgICAgICAgICAgDQogICAgICAgICAgICAgICAgICAg ICAgICAgICAgICAgICAgICAgICAgICAgICAgICAgICAgICAgICAgICAgICAgICAgICAgICAgICAgICAg SAQvAHPoJGChLXBvBZFjEURdTQUoMCh7D7nwNNRpOC PzCH6sXWc3Ek5+HHyQEkPmIYI0ptFntT4YCK8vq1HoWDkiTPYpl7XyPZv7GP1YYOJyYEdzUI6CFNcmrd 7CSHAiZPUljIVCp8azZbBvLKS0LEEhSkzdOV8LAEQyW4ljgqHhPEUtYQHNHTanLNCJKSxpNNYZJKPtGL RrSjYdRpOuJCYdMPEpKBDZHPT0KEFzLlZkPYGqANBq WrBeGKJMAN1IWvVuK5PxsT63BQxEMd7+XVnstsItNutBInNgECYku3AgNIu0MP7SYCQwUscle4WxHBWw RMLZUYzgJQ9MBXY3ZBL8XRQhSt8BGPWkP615phXdBM5BZv9SKsZoNP8cmp7AHNQqBCMtQnsUHiz7MSdq MY6YkZRbQEdNQDSXzg64mZZkzuMEe6ChwgXegQDQEW 4qBYSUVW34KD5jPKVYBBSmcDQtFH9xYY1vXSAvKSR6BcH0QVQSJU0YNWQxLSUeyHPiINGbMAERAP2NOA gnFCJ5PmNufyCxqHAxQYrrTH7YRKAfocCaBUBkYDHVCSolAE8OHIc2YWFiBKIfJy5VIm9XFpCmFG6mxo 9AIHSxWNRpNtgOCzl4UKdkGW9PaZWjGHbQZOQPzc46 lEAjitUBu0GxrrFngKOEUY1rNSWKLF66BN1mWDJJITRddAYlZI1jBL3bITOnNYU1NhJ0QKGBFM4IEAWz ZRNcpGRgLRJdDHOjOhWxLUdaCUDzXOThelXowLWkDVkmAQ1MWSWxovMqMVZbOSNQGBccWT9ZxzK3XSQm ITLqQh8WNYFmSaD3sCZ4XXGnYITZVe6+DQplbmRvYm nVMvP3ZRPbh1LxENp1KN4SOOGgVGe9wKAcQBWmAg65MYJcItjyWSVdgSOkVWIbKf5sczMexttcYj3aGR AdJQCgQglbVuUqVVUqUWrjNEOTKMbLIoWhX0Ysc7MdUqSyFSMxFXGlN4tTJtZrNAAyEnNqoDakAV7IOu MyT1DcbaSttQO3MUXuFFHTXeVxL0BdFUCpEHKxFUAY OElzNG0TBMs2QDE9FQVwRz4HDv0HNeTxCJ2mzx0NEFPtGDTzUdnTZjb5FXoqOJ8QyEXpDFnBTCASxbxv J7PtWa18JZPeGxriMboezH1rULIuXEHPzrLrgr0vG71aVCtmNl6oPVCkEOQmUhflGpXwVQSjKyl9MkER QGuVLpEbW0Ywn2SpOcZoWLXxJZHtU7yFRxAiABMqHq OvtRskRX8VXvQzK5IxxcRztMA6AJRyXVZDMfCxU3WhRMAiNFXqJIIRQYf+Be3TKS0va3DfUZt3RmXqCT 7acn3CFQdIYrLgI2U7wRNcI9O8IZagHo4NTQCkTXKmIpvkXZYCQVyfWC8HJM4xrmN5BH8MyBZdXOYzXV IchBBaASx5D20ypJSzEBnbYS9RPMS+Shannon+Vf4QJYIr EVIcGEMoWlYzZZVDHnEoK4HwK6VNh0SlF7ZvOP51eKssfpSbJExgPO4VPK3bOALaTZOKGH5TwWCzuN1x idO4EADmVVNJEcEsK60fsKChDBGbEDZyMDYvOr1FTINiR0YspzLudSmzptPtBZViGFJLGM8INIytzeRc eLOphVqzVC33eXlsUS3BPc4ETkFrDL7apw8PkAUqFb 0KSTC4Tr7RGBMnRCKqOLWzYVW1POKwHhKfQGwdCQGgADPvDQR2SJIcHIMfPS8LZqJsRRUuBTZ2OWQwOT CqKSFjdv9KWPSzMFY8JsX7OZGgWQWfGOJtBXolJHAnNHMhRRA0PRLiSRMiCD5LTeFoUUIdTIQcZRGwHV VwOFZctq8CALPjQWPyDyZ8JKGgADTeFKZxJRjqGZYk CUO0Kli1NLKfZKEyUP0JNoBmAMXqYSG5KTCyDUIdOFLjop7LKTEpWUYpFAvzCVReYRIzOYGnLRgyXCTv EJMdKUIwCJJbJESuYC1TDvMiRHDjEUHvYmNiUAEbFSDult9FVQUrVZShUlNyPOEpYNXaFOSdYQyyOSYz DET1KpVrJULtXTMqRR9JOuKyYZWoMGW5IhNuKXXiTR Mmba3EJPAmYQCjMVKsDTErETJpIVUmLGieLMBgGKZ2JsY0UZUhTYOzYC7WJiEnFPJuYuVdNTKzRILyPH Ddkq9UJLImIMWhXlWlUvXpKNNwQWUtQJllYCNtPFF4WdCeDLHeDTCkCQ3GEiVcBMPkPfU4UKnjCHXtRF Jzoo5MYLZuWBPqHepyPIOqRARiIHFkUPyeYOEjTVH7 BDU4VDBvHAKgRA3SXeDaHCZjYzmtCVXcBGIpEXXnnl1LZJFqTZGoKMR0VdUgKKBeQQDrUEpoIVIuZWV3 LGw3KJAvTYAuRE9VAnMtWYXsWrh5MnVlTIXrNESouu6IXAUxEUCqBEAwPkDcEQQaUODqYCxiNIPpALR4 AAG4JQQnWQUuZG5TGmDnFOQjRwP7YIZyDXJrPVUare 9MCTXlWJMjKQm0KJBxZKLqVEMtWDhaZNXjUSBcWSY4FHUnMPJnDH3GYxWdRCCqTEH5HTmcAXHyDBQkfz 7OTCNqZUZ6Ssr1LhNdWLZiLBDkZEdcAPBvEWDlDRx9RBPxTRBvQC9LDnLuZUEiDIOtKPNdQPZuIPRctt 0ZDWYrQSY3FsJ0HEXuYUGnUXDdZMngJWCoSHT9PIV5 JYPvIVEfXX2HAnGrCHXdUQI6JCWmWJXeHPMeju4WFAJmCEW4HRd1QZPyAIYdWXSbHRabWSDhULD2VgO0 FPZqOVCdEO2LSjJeZJUiZTQ2TKGrPSDtBLKmhq0VHQPlHAQ2Bvt9XwXzIOTvEPLvBQsyKMKdKOM5FWZ4 TOOgWSFnBL1ZIrTpEKHaIIgeWVzbABSbJIXbso2MOR IoTML1CjN2HKUvFXYnXSEiHMuzDZXsQHF9QKp9RPEdNYFmMF1AZaFiUQtkUATSHkd6FAxrK7h7TSL0Rx 5CQ6Zjj0IoXSTiLSWSTQvzDK0yoxTtEMAuEy7AN0mXQhi8MMGpOLA0UCYiURB9DIepVwy5GBVcUDGfSO Z9QOC3BP5tOKgaIgD5YEGjSzQ4ZsinSFS4DsY1FGKw PsX3BwQtUQI1HkNqCB0OIu5TTzT5DHG2bMKfKq5RRGr9AQmBLhUiAT3NMPn= ID Date Data Source [id number] 09/03/2020 12:04:[address] [facility] Service [facility] XXX-Imp : NoneGram Stn XXX : 4+WBC'S Seen.4+Gram negative rods2+Gram positive cocciin pairs and clusters2+Gram positive rodsMicroorganism XXX Cult : Organism of questionable significance. No further workup of4+Streptococcus constellatus (S. anginosus group)Organism of questionable significance. No further workup of3+Streptococcus anginosus Name Value Range Interpretation Code Description Data Nasreen rce(s) Supporting Document(s) Procedure Social History Code Duration Value Status Description Data Source(s ) Smoking 08/04/2021 12:00:00 AM EDT Former Smoker completed Former Smoker eCW1 ([facility]) Smoking 08/04/2021 12:00:00 AM EDT Former Smoker completed Former Smoker eCW1 ([facility]) Smoking 05/15/2021 12:00:00 AM EDT Former Smoker completed Former Smoker eCW1 ([facility]) Smoking 05/15/2021 12:00:00 AM EDT Former Smoker completed Former Smoker eCW1 ([facility]) Alcohol intake 08/31/2020 12:00:00 AM EST Ex-drinker (finding) comp leted Ex- drinker (finding) [facility] Smoking 08/31/2020 12:00:00 AM EST Never smoker completed Never s [facility] Vital Signs ID Date Data Source UNK Name Value Range Interpretation Code Description Data Source(s) Body weight 216 [lb_av] 216 [lb_av] eCW1 ([facility]) Body height 72 [in_i] 72 [in_i] eCW1 ([facility]) Body mass index (BMI) [Ratio] 29.29 kg/m2 29.29 kg/m2 eCW1 ([facility]) Heart rate 78 /min 78 /min eCW1 ([facility]) Respiratory rate 18 /min 18 /min eCW1 ([facility]) Body temperature 97.5 [degF] 97.5 [degF] eCW1 ( [facility]) Systolic blood pressure 112 mm[Hg] 112 mm[Hg] e CW1 ([facility]) Diastolic blood pressure 76 mm[Hg] 76 mm[Hg] eCW1 ([facility]) Body height 72 [in_i] 72 [in_i] MEDENT ([facility]) 6'0" Body weight 195.00 [lb_av] 195.00 [lb_av] MEDEN T ([facility]) Body mass index (BMI) [Ratio] 26.4 kg/m2 26.4 k g/m2 [facility] [facility] [place] body weight 178 [lb_av] 178 [lb_av] [facility] ([facility]) Body weight 88.452 kg 88.452 kg [facility]) Body surface area Derived from formula 2.11 m2 2.11 m2 [facility] ([facility]) Body weight 88.452 kg 88.452 kg [facility] ([facility]) Body surface area Derived from formula 2.11 m2 2.11 m2 [facility] ([facility]) Body height 72 [in_i] 72 [in_i] [facility] ([facility]) 6'0" Body weight 195.00 [lb_av] 195.00 [lb_av] [facility] ([facility]) Body mass index (BMI) [Ratio] 26.4 kg/m2 26.4 k g/m2 [facility] ([facility]) [place] body weight 178 [lb_av] 178 [lb_av] [facility] ([facility]) Body height 72 [in_i] 72 [in_i] [facility] ([facility]) 6'0" Body weight 190.00 [lb_av] 190.00 [lb_av] [facility] ([facility]) Body mass index (BMI) [Ratio] 25.8 kg/m2 25.8 k g/m2 [facility] ([facility]) [place] body weight 178 [lb_av] 178 [lb_av] [facility] ([facility]) Body weight 86.184 kg 86.184 kg [facility] ([facility]) Body surface area Derived from formula 2.08 m2 2.08 m2 [facility] ID Date Data Source [id number] 09/05/2020 02:34:15 PM [facility] Name Value Range Interpretation Code Description Data Source(s) WEIGHT RECORDED 190 lb 190 lb [facility] Body height Measured 72 in 72 in [facility] TRANSFER FROM [facility] Patient Treatment Plan of Care Planned Activity Planned Date Details Description Data Source (s) Diphenhydramine Hydrochloride 1.67 MG/ML Oral Solution [[facility]-Sleep [facility]] 08/04/2021 12:00:00 AM EDT eCW1 ([facility]) Diphenhydramine Hydrochloride 1.67 MG/ML Oral Solution [Wal-Sleep Z] 08/04/2021 12:00:00 AM EDT eCW1 ([facility]) Diphenhydramine Hydrochloride 1.67 MG/ML Oral Solution [Wal-Sleep Z] 05/15/2021 12:00:00 AM EDT eCW1 ([facility]) Triamcinolone Acetonide 1 MG/ML Topical Cream 05/15/2021 12:00:00 A M EDT eCW1 ([facility]) Diphenhydramine Hydrochloride 1.67 MG/ML Oral Solution [Wal-Sleep Z] 05/15/2021 12:00:00 AM EDT eCW1 ([facility]) Triamcinolone Acetonide 1 MG/ML Topical Cream 05/15/2021 12:00:00 A M EDT eCW1 ([facility]) chlorhexidine gluconate 1.2 MG/ML Mouthwash 08/31/2020 12:00:[address] [facility] Acetaminophen 325 MG / Hydrocodone Bitartrate 5 MG Ora l Tablet 08/31/2020 12:00:00 AM [facility] Amoxicillin 875 MG / Clavulanate 125 MG Oral Tablet 08/31/20 12:00:[address] [facility]
--- OUTSIDE RECORDS SUMMARY | 2021-08-29 11:49 | CCD ---
Author Author [facility] Organization [facility] Address Unknown Phone Unavailable Care Team Providers Care Solvent Mixer Name Role Phone Mitzi Watson Unavailable PROBLEMS Type Condition ICD9-CM Code [id number] Code Onset Dates Condition S tatus W/U Status Risk SNOMED Code Notes Problem History of attempted suicide Z91.5 Active confirme d 126677070 Problem Cannabis dependence, uncomplicated F12.20 Activ e confirmed 09813622 Problem Erectile dysfunction N52.9 Active confirmed 738440779 Problem History of cocaine abuse Z87.898 Active confirmed 968918021827333 Problem Excessive cerumen in both ear canals H61.23 Act herberth confirmed 492104259 Problem Severe episode of recurrent major depressive disorder, without psychotic features F33.2 Active confirmed 56161032 Problem History of alcohol abuse Z87.898 Active confirmed [id number] ALLERGIES No Known Allergies ENCOUNTERS from 1991 to 2021-07-09 Encounter Location Date Provider Diagnosis [address] [phone] [place] [address] Jul, Mitzi Watson IMMUNIZATIONS No Information SOCIAL HISTORY Tobacco Use: Social History Observation Description Date Details (start date - stop date) Former Smoker Sex Assigned At : Social History Observation Description Sex Assigned At Unknown Education: Question Answer Notes Level of Education: GED Audit Question Answer Notes Total Score: 2 Interpretation: Alcohol Education Language: Question Answer Notes Languages spoken: Congolese Restoration: Question Answer Notes Restoration No anabaptist beliefs that would impact health care. Sexual Hx: Question Answer Notes Had sex in the last 12 months (vaginal, oral, or anal)? Yes Have you ever had an STD? No Prevention Strategies discussed: Condoms with Women only Use protection? Yes How often? Most of the time Drug and Alcohol Question Answer Notes Total Score: 0 Interpretation: No problems reported Alcohol Screening: Question Answer Notes Did you have a drink containing alcohol in the past year? No Points 0 Interpretation Negative Tobacco Use: Question Answer Notes Are you a: former smoker quit sometime last y ear, then restarted & has quit againStarted age 14 so 17years @ peak 1.5ppd REASON FOR REFERRAL No Information VITAL SIGNS No information MEDICATIONS Medication SIG (Take, Route, Frequency, Duration) Notes Start Da te End Date Status Triamcinolone Acetonide 0.1 % 1 application excoriatio ns on dorsum of foot Externally Two times a Week for 7 day(s) May, Active Tolnaftate 1 % 1 application Externally Once a day for 30 Days May, Active PROCEDURES No Information RESULTS No Results REASON FOR VISIT COVID-19? 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 Hospitalization History Mental Health 08/17/2018 Goals Section No Information Health Concerns No Information MEDICAL EQUIPMENT No Information MENTAL STATUS No Information FUNCTIONAL STATUS No Information ASSESSMENTS No Information PLAN OF TREATMENT Medication Medication Name Sig Start Date Stop Date Triamcinolone Acetonide 0.1 % 1 application excoriatio ns on dorsum of foot Externally Two times a Week for 7 day(s) May, Tolnaftate 1 % 1 application Externally Once a day for 30 Days May, Next Appt Details Provider Name:Mitzi Watson, 2020-10 10:30:00 AM, [address] [facility], , [place], [address], Insurance Providers Payer Name Payer Address Payer Phone Insured Name Patient Relati onship to Insured Coverage Start Date Coverage End Date [facility] CORPORATE CLAIMS DEPT [address] [facility] [phone] ZENAIDA FORBES self
--- OUTSIDE RECORDS SUMMARY | 2021-08-29 11:49 | CCD ---
Author Author [employer] [facility] Organization [facility] [facility] Address Unknown Phone Unavailable Care Team Providers Care Boats Renter Name Role Phone Walter Mitzi Unavailable PROBLEMS Type Condition ICD9-CM Code [id number] Code Onset Dates Condition S tatus W/U Status Risk SNOMED Code Notes Problem History of attempted suicide Z91.5 Active confirme d 241419118 Problem Cannabis dependence, uncomplicated F12.20 Activ e confirmed 94582441 Problem Erectile dysfunction N52.9 Active confirmed 038302124 Problem History of cocaine abuse Z87.898 Active confirmed 661427533948109 Problem Excessive cerumen in both ear canals H61.23 Act herberth confirmed 034895788 Problem Severe episode of recurrent major depressive disorder, without psychotic features F33.2 Active confirmed 50244163 Problem History of alcohol abuse Z87.898 Active confirmed 162929144 ALLERGIES No Known Allergies ENCOUNTERS from 1991 to 2021-05-31 Encounter Location Date Provider Diagnosis [address] [phone] [place] [address] 12 May, 2021 Mitzi Watson Physical exam Z00.00 ; Sever e episode of recurrent major depressive disorder, without psychotic features F33.2 ; History of alcohol abuse Z87.898 ; History of attempted suicide Z91.5 ; Cannabis dependence, uncomplicated F12.20 ; Erectile dysfunction N52.9 ; Colon cancer screening Z12.11 ; Prostate cancer screening Z12.5 ; Lipid screening Z13.220 ; Tinea pedis of both feet B35.3 and Sebaceous cyst L72.3 IMMUNIZATIONS No Information SOCIAL HISTORY Tobacco Use: Social History Observation Description Date Details (start date - stop date) Former Smoker Sex Assigned At : Social History Observation Description Sex Assigned At Unknown Education: Question Answer Notes Level of Education: GED Audit Question Answer Notes Total Score: 2 Interpretation: Alcohol Education Language: Question Answer Notes Languages spoken: Nigerian Baptist: Question Answer Notes Baptist No adventist beliefs that would impact health care. Sexual [...] REASON FOR REFERRAL No Information VITAL SIGNS Weight 216 lbs May, Height 72 in May, BMI 29.29 kg/m2 May, Heart Rate 78 /min May, Respiratory Rate 18 /min May, Temperature 97.5 degrees Fahrenheit May, Oximetry 97 May, Blood pressure systolic 112 mm Hg May, Blood pressure diastolic 76 mm Hg May, MEDICATIONS Medication SIG (Take, Route, Frequency, Duration) Notes Start Da te End Date Status Triamcinolone Acetonide 0.1 % 1 application excoriatio ns on dorsum of foot Externally Two times a Week for 7 day(s) May, Active Tolnaftate 1 % 1 application Externally Once a day for 30 Days May, Active PROCEDURES No Information RESULTS No Results REASON FOR VISIT to establish MEDICAL (GENERAL) HISTORY Type Description Date Medical History 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 at age 18 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 Surgical History lung bx benign had Lemeirres had clots, scar tissue; 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 Hospitalization History Mental Health 08/17/2018 Goals Section No Information Health Concerns No Information MEDICAL EQUIPMENT No Information MENTAL STATUS No Information FUNCTIONAL STATUS No Information ASSESSMENTS Encounter Date Diagnosis Assessment Notes Treatment Notes Treatm ent Clinical Notes May, Physical exam (ICD-10 - Z00.00) May, Severe episode of recurrent major depressive disorder, without psychotic features (ICD-10 - F33.2) Depression is stable off zoloft did help at the time May, History of alcohol abuse (ICD-10 - Z87.898) Off 3Y now May, History of attempted suicide (ICD-10 - Z91.5) Stable doing well May, Cannabis dependence, uncomplicated (ICD-10 - F12 .20) May, Erectile dysfunction (ICD-10 - N52.9) Corrected, has been off etoh 3Y & fine since May, Colon cancer screening (ICD-10 - Z12.11) No family h/o colon ca or polyps May, Prostate cancer screening (ICD-10 - Z12.5) no family hx May, Lipid screening (ICD-10 - Z13.220) May, Tinea pedis of both feet (ICD-10 - B35.3) WIll do oral tolnaftate after labs. are back May, Sebaceous cyst (ICD-10 - L72.3) 1.5cm nontender, no erythema mid upper L back will monitor May, Other 40" chart revie w,prep, h&p, orders, plan PLAN OF TREATMENT Medication Medication Name Sig Start Date Stop Date Triamcinolone Acetonide 0.1 % 1 application excoriatio ns on dorsum of foot Externally Two times a Week for 7 day(s) May, Tolnaftate 1 % 1 application Externally Once a day for 30 Days May, Treatment Notes Assessment Notes Clinical Notes Severe episode of recurrent major depres sive disorder, without psychotic features Depression is stable off zol oft did help at the time History of alcohol abuse Off 3Y now History of attempted suicide Stable doin g well Erectile dysfunction Corrected, has been off etoh 3Y & fine since Colon cancer screening No family h/o col on ca or polyps Prostate cancer screening no family hx Tinea pedis of both feet WIll do oral to lnaftate after labs. are back Sebaceous cyst 1.5cm nontender, no erythema mid upper L back will monitor Treatment Notes Test Name Order Date Comprehensive Metabolic Profile (CMP) 2021-05-15 CBC with Differential 2021-05-15 LIPID PANEL (CARDIAC RISK) 2021-05-15 Next Appt Details 4 Weeks to review labs DISTRIBUTION DESIGNER Reason: Provider Name:Mitzi Watson, 06-12 10:30:00 AM, [address] [facility], , [place], [address], Insurance Providers Payer Name Payer Address Payer Phone Insured Name Patient Relati onship to Insured Coverage Start Date Coverage End Date [facility] CORPORATE CLAIMS DEPT [address] [facility] [phone] ZENAIDA FORBES self
--- OUTSIDE RECORDS SUMMARY | 2021-08-29 11:49 | CCD ---
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.9 Active confirmed 67503421 Problem Encounter for immunization Z23 Active confirmed 943014951 Problem Severe episode of recurrent major depressive disorder, without psychotic features F33.2 Active confirmed 06347959 Problem History of alcohol abuse Z87.898 Active confirmed 041865180 Problem Cannabis dependence, uncomplicated F12.20 Activ e confirmed 70834604 Problem Erectile dysfunction N52.9 Active confirmed 043357316 ALLERGIES No Known Allergies ENCOUNTERS from 1991 to 2021-08-25 Encounter Location Date Provider Diagnosis [facility] [address] [facility] [phone] [place] [address] 22 Aug, 2021 Mitzi Watson IMMUNIZATIONS Vaccine Route Administration Date Status Influenza 18 yrs & older Flublok IM Intramuscular Aug 04, 2021 Administered SOCIAL HISTORY Tobacco Use: Social History Observation Description Date Details (start date - stop date) Former Smoker Sex Assigned At : Social History Observation Description Sex Assigned At Unknown Education: Question Answer Notes Level of Education: GED Audit Question Answer Notes Total Score: 0 Interpretation: Alcohol Education Language: Question Answer Notes Languages spoken: Italian Episcopalian: Question Answer Notes Episcopalian No presybeterian beliefs that would impact health care. 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
--- OUTSIDE RECORDS SUMMARY | 2021-08-29 11:53 | CCD ---
Author Author [facility] Organization [facility] Address Unknown Phone Unavailable Care Team Providers Care Art Director Name Role Phone Cher Gomez MD Unavailable [...] is protected by Article 27-F of the [facility] Public Health law. If you continue you may have access to information: Regarding HIV / AIDS; Provided by facilities licensed or operated by the [facility] Office of Mental Health; or Provided by the [facility] Office for People With Developmental Disabilities. If such information is present, then the following [facility] mandated warning applies: This information has been [...] law may result in a fine or retirement sentence or both. A general authorization for the release of medical or other information is NOT sufficient authorization for further disc losure. Allergies and Adverse Reactions Type Description Substance Reaction Status Data Source(s ) Propensity to adverse reactions NO KNOWN ALLERGIES NO KNOWN ALLERGIES [facility] Family History Family Member Name Family Member Gender Family Member Status Date o f Status Description Data Source(s) Unknown Male Problem MEDENT ([facility]) Unknown Female Problem [facility] ([facility] Unknown Female Problem MEDENT ([facility] Encounters Encounter Providers Location Date Indications Data Source(s ) Unknown [address] [facility] [place] [id number] 08/25/2021 12:00:00 AM EST eCW1 ([facility]) Unknown [address] [facility] [facility] [place] [id number] 08/12/2021 12:00:00 AM EST eCW1 ([facility]) Unknown [address] [facility] [facility] [place] [id number] 07/08/2021 12:00:00 AM EDT eCW1 ([facility]) Outpatient [id number] [facility] [facility] [place] [id number] 05/15/2021 12:00:00 AM EDT eCW1 ([facility]) Office Visit Attender: Aleksandr Chandler/Melchor/Ramesh/Rein dl 09/09/2020 09:15:00 AM EST MEDENT ([facility], ) Outpatient Attender: Js Chandler/Melchor/Ramesh/Re indl 09/02/2020 09:30:00 AM EST MEDENT ([facility], ) Emergency Attender: ALEKSANDR LAWTON MD 07A-ERMADULT 08/05 12:00:00 AM EST - 08/31/2020 10:23:00 PM EST Peritonsillar abscess [facility] Peritonsillar abscess Patient discharged. Immunizations Vaccine Date Status Description Data Source(s) influenza, recombinant, quadrIvalent,injectable, prese rvative free 08/04/2021 11:10:00 AM EDT completed eCW1 ([facility]) influenza, recombinant, quadrIvalent,injectable, prese rvative free 08/04/2021 11:10:00 AM EDT completed eCW1 ([facility]) COVID-19 VACCINE Moderna 01/23/2021 12:00:00 AM EDT completed [facility] Vaccine Series Complete: YESThis Data wa s Submitted to [facility] Via [employer]. COVID-19 VACCINE Moderna 12/26/2020 12:00:00 AM EDT completed [facility] Vaccine Series Complete: NOThis Data was Submitted to [facility] Via [employer]. Medications Medication Brand Name Start Date Product [...] 1.0 {application} active Tolnaftate 1 % eCW1 ([facility]) Diphenhydramine Hydrochloride 1.67 MG/ML Oral Solution [Wal-Sleep Z] Tolnaftate 1 % Tolnaftate 1 % 08/04/2021 12:00:00 AM EDT 1.0 {application} active Tolnaftate 1 % eCW1 ([facility]) 800 mg 06/23/2021 12:00:00 AM EDT tablet [...] DAY WITH FOOD UNTIL GONE SOLD: 05/20/2021 [facility] Triamcinolone Acetonide 1 MG/ML Topical Cream Triamcin olone Acetonide 0.1 % Triamcinolone Acetonide 0.1 % 05/15/2021 12:00:00 AM EDT active Triamcinolone Acetonide 0.1 % eCW1 ([facility]) Diphenhydramine Hydrochloride 1.67 MG/ML Oral Solution [Wal-Sleep Z] Tolnaftate 1 % Tolnaftate 1 % 05/15/2021 12:00:00 AM EDT 1.0 {application} active Tolnaftate 1 % eCW1 ([facility]) Diphenhydramine Hydrochloride 1.67 MG/ML Oral Solution [Wal-Sleep Z] Tolnaftate 1 % Tolnaftate 1 % 05/15/2021 12:00:00 AM EDT 1.0 {application} active Tolnaftate 1 % eCW1 ([facility]) Diphenhydramine Hydrochloride 1.67 MG/ML Oral Solution [Wal-Sleep Z] Tolnaftate 1 % Tolnaftate 1 % 05/15/2021 12:00:00 AM EDT 1.0 {application} active Tolnaftate 1 % eCW1 ([facility]) Triamcinolone Acetonide 1 MG/ML Topical Cream Triamcin olone Acetonide 0.1 % Triamcinolone Acetonide 0.1 % 05/15/2021 12:00:00 AM EDT active Triamcinolone Acetonide 0.1 % eCW1 ([facility]) Diphenhydramine Hydrochloride 1.67 MG/ML Oral Solution [Wal-Sleep Z] Tolnaftate 1 % Tolnaftate 1 % 05/15/2021 12:00:00 AM EDT 1.0 {application} active Tolnaftate 1 % eCW1 ([facility]) Triamcinolone Acetonide 1 MG/ML Topical Cream Triamcin olone Acetonide 0.1 % Triamcinolone Acetonide 0.1 % 05/15/2021 12:00:00 AM EDT active Triamcinolone Acetonide 0.1 % eCW1 ([facility]) Triamcinolone Acetonide 1 MG/ML Topical Cream Triamcin olone Acetonide 0.1 % Triamcinolone Acetonide 0.1 % 05/15/2021 12:00:00 AM EDT active Triamcinolone Acetonide 0.1 % eCW1 ([facility]) morphine sulfate (PF) injection 4 mg [id number] 08/31/2020 08:45: 00 PM EST 4 mg Intravenous completed 4 mg, In travenous, Once, 08/31/20 at 2044, For 1 dose [facility] Medication administered onsite sodium chloride 0.9 % bolus 1,000 mL [id number] 08/31/2020 08:45: 00 PM EST 1000 mL Intravenous completed 1,000 mL , Intravenous, Once, 08/31/20 at 2044, For 1 dose [facility] Medication administered onsite Amoxicillin 875 MG / Clavulanate 125 MG Oral Tablet Amoxicillin-Pot Clavulanate 875-125 MG Oral Tablet (AUGMENTIN) Amoxicillin-Pot Clavulanate 875-125 MG O ral Tablet (AUGMENTIN) 08/31/2020 12:00:00 AM EST 1 {tbl} Oral active Take 1 tablet by mouth Two Times Daily for 10 days [facility] Acetaminophen 325 MG / Hydrocodone Julieth trate 5 MG Oral Tablet HYDROcodone- Acetaminophen 5-325 MG Oral Tablet (LORTAB) HYDROcodone-Acetaminophen 5-325 MG Oral Tablet (LORTAB) 08/31/2020 12:00:00 AM EST 1 {tbl} Oral active Peritonsillar abscess Take 1 tablet by mouth every 6 (six) hours as needed for Pain (acute) for up to 3 days, Max Daily Dose: 4 tablets [facility] Peritonsillar abscess chlorhexidine gluconate 1.2 MG/ML Mouthw priscilla Chlorhexidine Gluconate 0.12 % Mouth/Throat Solution (Peridex) Chlorhexidine Gluconate 0.12 % Mouth/Thr oat Solution (Peridex) 08/31/2020 12:00:00 AM EST 15 mL Mouth/Throat active Use as directed 15 mLs in the mouth or throat Two Time s Daily [facility] Insurance Providers Payer name Policy type / Coverage type Policy ID Covered libertarian ID Covered libertarian's relationship to andrew Policy Andrew Plan Information [place] 280/780 [id number] MO2 [id number] MICHAEL EXCHANGE U [id number] Self [id number] [place] PPO 302/307 [id number] SP [id number] BLUE CROSS [id number] S [id number] BLUE CROSS [id number] S [id number] MICHAEL I [id number] Self [id number] MICHAEL I [id number] Self [id number] SELF PAY UNAVAILABLE SP UNAVAILA BLE SELF PAY ONLY [id number] Excell[employer] BCBS P [id number] S [id number] Excell[employer] BCYO P [id number] S [id number] ANSI-Commercial [id number] [place] 306/806 [id number] SP [id number] [place]BS [place] PPO 302/307 [id number] SP [id number] SELF-PAY UNAVAILABLE S UNAVAILA BLE MICHAEL [facility] [id number] SP [id number] EXCELLUS BCBS B [id number] S [id number] [facility] [id number] SP [id number] Excellus BCYO P [id number] S [id number] Self Pay S UNAVAILABLE S UNAVAILA BLE Excell[employer] BCYO P UNAVAILABLE S UNAV AILABLE SELF PAY ONLY [id number] SP [id number] [facility] (O) [id number] Se lf [place] Medicaid/CHP/FHP Commercial Essential Plan 1 [id number] Self Essential Plan 1 [facility] [id number] SP [id number] MICHAEL [place] [id number] SP [id number] [facility] [place] XIX MAN [id number] 18 [id number] SELF PAY ONLY [id number] SP [id number] MICHAEL [id number] SP [id number] [facility] [id number] SP [id number] [place] [id number] S [id number] Self Pay P none S none [id number] SP [id number] BCBS [facility] [id number] SP [id number] SELF PAY ONLY UNAVAILABLE UNAV AILABLE BCBS OF [place]EY [place]EN[place] [id number] SP [id number] Problems, Conditions, and Diagnoses Code Display Name Description Problem Type Effective Dates Data Source(s) J36 Peritonsillar abscess Peritonsillar abscess Diagnosis 08/31/2020 08:05:00 PM [facility] left samir-tonsilar abscess left samir-tonsilar abscess Diagnosis 08/31/2020 08:05:00 PM [facility] Z23 [id number] Encounter for immunization Problem 12:00:00 AM EDT eCW1 ([facility]) N46.9 [id number] 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 ID Date Data Source [id number] 11/11/2020 12:00:00 AM EST [facility] Name Value Range Interpretation Code Description Data Nasreen rce(s) Supporting Document(s) SARS-CoV2 Rapid Antigen Negative [facility] This lab was ordered by [facility] and reported by [facility]. ID Date Data Source [id number] 11/06/2020 12:55:00 PM EST [facility] Name Value Range Interpretation Code Description Data Nasreen rce(s) Supporting Document(s) SARS coronavirus 2 RNA Not Detected [facility] [place] This lab was ordered by [facility] and reported by [facility]. ID Date Data Source [id number] 10/06/2020 12:00:00 AM EST [facility] Name Value Range Interpretation Code Description Data Nasreen rce(s) Supporting Document(s) SARS-CoV2 Rapid Antigen [facility] This lab was ordered by [facility] and reported by [facility]. ID Date Data Source [id number] 09/03/2020 07:57:39 AM EST [facility] Name Value Range Interpretation Code Description Data Nasreen rce(s) Supporting Document(s) [facility] EWYDWt7oMlIETnZj30/GTCenCRKuf3SyXBhvUUa5CXjvIEAdP8CuCXA9lV2wNAS3ODaLSbOdDgIaIrJe lb HfZqjXBaHlAGBxUpqTJbPhBOuaBffnwCDwRN9CcYH1BKDyN85vDCMhNHVzZ2WpGAX8Qjt+We3DJZIlhJ RsWC9AQjoH1Y9hy3rOIq1egE/RPDIbFLKnrFp0rxQZuJSp4pA47wYy8L+3DNtjicFwTVr9qn4HRi/t6B dRGmqzQBJgnbdDvmveNQefhSj//E8c+65hGCL/u/qn H1hi+CD+/HtEPDWbx6hxn1YOiSgHIU2/wET1q70+5rVRF4V5f9aRlkkiD3HoFZ7RFWAFZwodU7/mYTyc jQIp7JL1S6kFBN6f5zAHw0zFWJuz8Ydq5v7/iMF/xZuB+Qh5NiAkGWHB+xhmT7JklnA75LLyCazoj819 WuY2mVz8ejP6drwu82H8UQj7bIlWRYwH7oXZ6HileK kw2tFxt2QfKMSMAixUTVFj3yq9sc6SHjzXnb3hO5Q6kGXoRrZg8BJI4+QxKOmk1QtRY/DdhpamKT/Ulises [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 [file] FdLVUZJyBgHO7CZMj= ID Date Data Source [id number] 09/02/2020 06:14:49 AM EST [facility] Name Value Range Interpretation Code Description Data Nasreen rce(s) Supporting Document(s) ED Provider Note [facility] GONJLd6gPjQIHjVm37/RMNqhNYHgz9OaCCbgOGa1AFkaVNBpG0OrLJM6jC8kAWY4IIsXZfUeAcZzYTNk lbm DfIzlHCxLjLUFoZmgFZfPrBFgbJntdjTIuEB6SwAU9OWYvV28vFEBdYVQjI5QmIJDcPPQ+Nq8XBTRciP GeRA3DKjiG3W9jFzTETy2sQv2KweukAjDy5+cORUJzmj4xueYpX7tf5EK+MErSW3Y12+ramirez+arpN3ZjOU 31PlxUkVxYFtqQH0C9nrm1PUcY//sxtndkeKlKu2o/ MKzFeaC43q/AQigE3gp0+0p8nMheKcLoRcm/Martin+Nw0vmt1slCabrjYL/APFNrDJxzE7HeqKiH+ng/HJ [file] c0PYPgRxSSIHCGoh1onaTqUH3OXsN2PWd15SMJ3S3qvIERkg6Yqfj9g+WthwW1P8thKIe8mU5A+Lithograph Printer+x [file] ICAgICAgICAgICAgICAgICAgICAgICAgICAgICAgICAgICAgICAgICAgICAgICAgICAgICAgICAgICAg ICAgICAgICAgICAgDQogICAgICAgICAgICAgICAgIC AgICAgICAgICAgICAgICAgICAgICAgICAgICAgICAgICAgICAgICAgICAgICAgICAgICAgICAgICAgIC AgICAgICAgICAgICAgICAgICAgICAgDQogICAgICAgICAgICAgICAgICAgICAgICAgICAgICAgICAgIC AgICAgICAgICAgICAgICAgICAgICAgICAgICAgICAg ICAgICAgICAgICAgICAgICAgICAgICAgICAgICAgICAgDQogICAgICAgICAgICAgICAgICAgICAgICAg ICAgICAgICAgICAgICAgICAgICAgICAgICAgICAgICAgICAgICAgICAgICAgICAgICAgICAgICAgICAg ICAgICAgICAgICAgICAgDQogICAgICAgICAgICAgIC AgICAgICAgICAgICAgICAgICAgICAgICAgICAgICAgICAgICAgICAgICAgICAgICAgICAgICAgICAgIC AgICAgICAgICAgICAgICAgICAgICAgICAgDQogICAgICAgICAgICAgICAgICAgICAgICAgICAgICAgIC AgICAgICAgICAgICAgICAgICAgICAgICAgICAgICAg ICAgICAgICAgICAgICAgICAgICAgICAgICAgICAgICAgICAgDQogICAgICAgICAgICAgICAgICAgICAg ICAgICAgICAgICAgICAgICAgICAgICAgICAgICAgICAgICAgICAgICAgICAgICAgICAgICAgICAgICAg ICAgICAgICAgICAgICAgICAgDQogICAgICAgICAgIC AgICAgICAgICAgICAgICAgICAgICAgICAgICAgICAgICAgICAgICAgICAgICAgICAgICAgICAgICAgIC AgICAgICAgICAgICAgICAgICAgICAgICAgICAgDQogICAgICAgICAgICAgICAgICAgICAgICAgICAgIC AgICAgICAgICAgICAgICAgICAgICAgICAgICAgICAg ICAgICAgICAgICAgICAgICAgICAgICAgICAgICAgICAgICAgICAgDQogICAgICAgICAgICAgICAgICAg ICAgICAgICAgICAgICAgICAgICAgICAgICAgICAgICAgICAgICAgICAgICAgICAgICAgICAgICAgICAg EXSoILBgTZDuCHFqVKZlOTVvRFNzSLg4H4qwVAGtUP EgFS3eAYz7Ab1+FXaWLvWlMRP2mjKkbT8LAS5xu8QhHEmnAQCru6FhUPu0NS2NXPVkFDdoLY2GBJjhcy 2WTUTnWYHqfVPGv8fvMaVeKMQ6CNBkCneyKS8EKFJfM5yqrqSzLMDcRRKPUHhtZYMMIRgoJXQDJFNgSF MiQyOaIxOdSTJtNYSfLPDEXTQ8NIKrSrDaCREuZREh FjEuYBBGHA9WLgNtL7XqjD13GKhHNx1+XSxkhjGiUxoULxQeHVUab0HnWCo6XY5XFYCgQyzdi5WsXQKf CJJJMOisCR3DBOD0EOT8PEIiZd7LTMQvT644waEsKY1MWc0PEgJgAC3qkn3NKNMfUAEaZjoZAup7MRnx ZM9SoRAfUYhSJUEVet66uMLxdeSKr8CtijIdmJEAJW 1kGQOTVY68UR2cKMSXRUUdeCJhRM4uKB2nQVJqDKS6RcI8SJWTMA1RUYLeDXCbjAUkAMZmKPHMHP5PXS hiUPH5SaNqsrRguOAtLXwrTC0NKONlluNrMGUtJYOOWDeuCJ9YZAz9KWSsDWRsDp5IDi2YUjHbEG4rpj 7QZFVaCXKhLmpSUke6UAfmNI6MtBVxJIcQUBNXpb48 kVOiwpWHq7OaljCprQVYBI4fMTGVGU15NF3rXXOMMXJndCHbOH2gAR5jRKSiQOX5ZlD5DMZVJG6GLBLz HEHpoMJbXJUwMUKaUbDeJOxyZPLdJUIpltOgsIEeHJoxYP0VVYZpbeNkOZLsHNCVTJqxHQ2ZovX2CQFw WIAnMq1BFQAjXtT5zNV2MYEqUYKRYs6+DQplbmRvYm jELuE1NZTta7NnCWf7OG3GFWDtVUu5rCJiAEOkZb29QQJnFtbrXNSewDBhWEOkZg9wklReiohcCz6rOJ KlKLIkYgkaZqXqIONeZTajMKHPBSdJNxUhK5Sal7TjQvPdOQUtJQVwJ3bOQgJpXQYeXaWiyEsiJC8DFn XtY2BuxrMrnVB2MMDvFMALEnOiY4VcATTrURYdBSSN BEnaOL5AYFh1CUE0CRHsIn4ADp4KAyGwTH4dbt9XKNKsXEIlTlxJHbu7YEydKL8QjSIjJLlBANPMqutl C1PkUz17QBZeUidfUqgkfP7lGGMmMQRMsxMbur6jY46zDDdxLz6sEKTwVNNmSgojXdGgVWVyDpq2ZpAC WErJWpAvA7Npq5WtXyXrINGtEHFuI6fMVcZtYZMiMj EctQbxYT2VLnMhR7McfiIhqNW7KRVnROPKLgKlU1VrGZLsGANfSYKGLDm+Yn7LIF8dy2KxEVq7AtTbMJ 2vva8RPZrHCjGvG5G0uWQrU5D8CBnfGs2RMLMqPAWzYdcbDJHKXBlsSN5YVQ6mmxU2KK9IvSPkCBTeMD JpdZBmZAy5S96mqXPoZVkhRI7VUHI+Shannon+Tc7OTIIk BOVfERCxKoVdEIZDZhDoP0UrX9TJe7JxY0VrRD36iNddsfBfWLmeJZ0NJP3ySPLcJBLOZO8ZzGXnnN2f ivI1EHXvMPEHUiJfU56kpJVzPRHmHTAvVNEzHt6CDEFzA5EanjBsoLapowPqXVAzIRIBCQ1RYGapsoUn xUNlfDnyIN16wFrrAY3WDt8HIgCaAR8hdo2ZuJZjXy 0MAFM6Cv6TLMZeVWFeCAYvKHG4FEOfPzByWStlHZKbDRHdHDH6DAAuJSTrUO8ZGcCcVMAjJYV8SGBdCG CcJAPxem3NGOHlHLH0DnM6PXWjKYDcUOBtIJmxEIFgFIGqPAY7EEZuUQXzHV1TJqFsUPBrLSWeFNBjWA XdBPNkhd6PJEQfBYErTbG4ZNJsVCHkPAHkZMnmKGFu TVF7Nmu2ZWOcMTIjUU9FGlFsHXNbCEX2IYIxFFPlPZFdpt3DNWEtJKYxOKnhBUZmHETsTXWfPNevFMDr KUAlPEJbOTOzIYRrIP0UAgUrNJYhRMIxRgCmGLYsDQLbux6IUSOdPYRyFpZiPTTwVRPeVPMlYBkfAITm DRD4MjGlAWZxOENcRS7MUaCyESIvSEW6XlYcYJFzII Hxxm3XSKPdJTIgHOIrUEGlSZOzNQElHZmvEPAaRIY7TpU4EZWiXDMpLL4IEcEkDMLoDrIkRBZlROTeTE Ngsp0ZCJImIQYnApRyTtVlIPBcIZAtVUjaEIZxPWG4XcWqBMHiUGQjVA3ECeSrCIRnHaC5DCdcXFFwSC Bxza3TFOWgBNQoBexeFQKiUXLpBCPyZVnuVTOwCJQ3 NCT4JJVlSWUxDY4IBkNdVSKjVfacXULhQTEeXQQfje9KMAAdBTWsNZT8XbIbWVHcOJYiTHutVRNxIPL3 HVv8IPElYCFfRC8SSvNtMDOzNmk0MpTiBWRfVYGgap3TZOEqLCBgCCOfZkCxNNGfHKBfLXzjDZAlFEC6 RVG0ZGIhBBXwPQ2IGtIgZHCjPpD2IHShOWBoMCMxml 4PXGGzZBPiHYe4HQIpAYEzZPVjLLybTUKsKVTeQBQ8JBMvSMRiAO9YDsQhYPIlDQE1BCldMQFuNFWgoc 5KGQRtTBU8Nwm3LjIgOWLvLKTpPOrqMXHsHAWyEJr1ODWpFHMpZF7OImEjMAZmPOWqAOGsLCGhQOVnjc 9QUHFvSVR7CpS3FSUlNILtPPJmYVfdIJOcKOH7YGW9 TMLvCXGbEN6KMzPpMCGqCNA4QULsKNQpDKFkrn1YULUpESZ6EEe9OSRgSGEgHGAnUWxrOCWsDBL2OiR0 FIXxIYMzKB7UGeXrQEEaDQU3ASWsSRJyXKBkvx9PQYTjTRY9Vlk1YbBkAZFaIHDfQXoyOODuKNH8BFX2 VISgHQByOY6TUiWqMTGjLNysRWcdAUTcTLFbnq5NHE TsRBY3KdE6CYVdPLYxLROeNMfgDJLhFOQ8CJl8YVHhITCdGS0URkUnICrvLDYGWby6YZmtL9n8SIU1La 9JW5Nia3WfRPRvCIHBBBxfSC1tyxXxKSUmJn5SW7yJQcj5JISeYTS7GVJfAEE3BXobSme0GODdKICeSY R7UZR3TB7iUEvhRyO0DBCaCzT5GdbuODK8QdB4TAVz EbF0JnUvREK0EiDjEV7KDw9GFzE3QFU9iENzEp0PIFf8GFjAFcOzCP3JMIa= ID Date Data Source [id number] 09/03/2020 12:04:56 PM EST [facility] Service Cmnt XXX-Imp : NoneGram Stn [...] EDT Former Smoker completed Former Smoker eCW1 ([facility]) Smoking 08/04/2021 12:00:00 AM EDT Former Smoker completed Former Smoker eCW1 ([facility]) Smoking 05/15/2021 12:00:00 AM EDT Former Smoker completed Former Smoker eCW1 ([facility]) Smoking 05/15/2021 12:00:00 AM EDT Former Smoker completed Former Smoker eCW1 ([facility]) Alcohol intake 08/31/2020 12:00:00 AM EST Ex-drinker (finding) comp leted Ex- drinker (finding) [facility] Smoking 08/31/2020 12:00:00 AM EST Never smoker completed Never s [facility] Vital Signs ID Date Data Source UNK Name Value Range Interpretation Code Description Data Source(s) Body weight 216 [lb_av] 216 [lb_av] eCW1 ([facility]) Body height 72 [in_i] 72 [in_i] [facility] Body mass index (BMI) [Ratio] 29.29 kg/m2 29.29 kg/m2 eCW1 ([facility]) Heart rate 78 /min 78 /min eCW1 ([facility]) Respiratory rate 18 /min 18 /min eCW1 ([facility]) Body temperature 97.5 [degF] 97.5 [degF] eCW1 ( [facility]) Systolic blood pressure 112 mm[Hg] 112 mm[Hg] e CW1 ([facility]) Diastolic blood pressure 76 mm[Hg] 76 mm[Hg] eCW1 ([facility]) Body height 72 [in_i] 72 [in_i] MEDENT ([facility]) 6'0" Body weight 195.00 [lb_av] 195.00 [lb_av] MEDEN T ([facility]) Body mass index (BMI) [Ratio] 26.4 kg/m2 26.4 k g/m2 [facility] ([facility]) [place] body weight 178 [lb_av] 178 [lb_av] MEDEN T ([facility]) Body weight 88.452 kg 88.452 kg [facility] ([facility]) Body surface area Derived from formula 2.11 m2 2.11 m2 [facility] ([facility]) Body weight 88.452 kg 88.452 kg [facility] ([facility]) Body surface area Derived from formula 2.11 m2 2.11 m2 [facility] ([facility]) Body height 72 [in_i] 72 [in_i] MEDENT ([facility]) 6'0" Body weight 195.00 [lb_av] 195.00 [lb_av] MEDEN T ([facility]) Body mass index (BMI) [Ratio] 26.4 kg/m2 26.4 k g/m2 [facility] ([facility]) [place] body weight 178 [lb_av] 178 [lb_av] MEDEN T ([facility]) Body height 72 [in_i] 72 [in_i] MEDENT ([facility]) 6'0" Body weight 190.00 [lb_av] 190.00 [lb_av] MEDEN T ([facility]) Body mass index (BMI) [Ratio] 25.8 kg/m2 25.8 k g/m2 MEDENT ([facility]) [place] body weight 178 [lb_av] 178 [lb_av] MEDEN T ([facility]) Body weight 86.184 kg 86.184 kg MEDENT ([facility]) Body surface area Derived from formula 2.08 m2 2.08 [facility] ID Date Data Source [id number] 09/05/2020 02:34:15 PM [facility] Name Value Range Interpretation Code Description Data Source(s) WEIGHT RECORDED 190 lb 190 lb [facility] Body height Measured 72 in 72 in [facility] TRANSFER FROM [facility] Patient Treatment Plan of Care Planned Activity Planned Date Details Description Data Source (s) Diphenhydramine Hydrochloride 1.67 MG/ML Oral Solution [Wal-[facility]] 08/04/2021 12:00:00 AM EDT eCW1 ([facility]) Diphenhydramine Hydrochloride 1.67 MG/ML Oral Solution [[facility]] 08/04/2021 12:00:00 AM EDT eCW1 ([facility]) Diphenhydramine Hydrochloride 1.67 MG/ML Oral Solution [[facility]] 05/15/2021 12:00:00 AM EDT eCW1 ([facility]) Triamcinolone Acetonide 1 MG/ML Topical Cream 05/15/2021 12:00:00 A M EDT eCW1 ([facility]) Diphenhydramine Hydrochloride 1.67 MG/ML Oral Solution [[facility]] 05/15/2021 12:00:00 AM EDT eCW1 ([facility]) Triamcinolone Acetonide 1 MG/ML Topical Cream 05/15/2021 12:00:00 A M EDT eCW1 ([facility]) chlorhexidine gluconate 1.2 MG/ML Mouthwash 08/31/2020 12:00:00 AM [facility] Acetaminophen 325 MG / Hydrocodone Bitartrate 5 MG Ora l Tablet 08/31/2020 12:00:00 AM [facility] Amoxicillin 875 MG / Clavulanate 125 MG Oral Tablet 08/31/20 12:00:00 AM [facility]
== END 2021-08-29 11:45 | disposition left against medical advice (07) ==
LOC: M ED 11:41
DX: Z53.21 Procedure and treatment not carried out due to patient leaving prior to being seen by health care provider (principal)

== ENCOUNTER → 2021-11-20 | Outpatient (REF) | payer OTHER | LOC: M SFHCPLAZ 16:40 | PROVIDERS: ATTEND Physician Assistant Medical | DX: D64.9 Anemia, unspecified (principal) ==

== ENCOUNTER → 2022-02-05 | Outpatient (CLI) | payer OTHER ==
[2022-02-05 13:35] LABS: HEMATOCRIT 41.4 % (42.0-52.0)
[2022-02-05 13:40] LABS: BASO # 0.1 10^3/uL (0.0-0.2); EOS # 0.3 10^3/uL (0.0-0.5); EOS % 3.1 % (0.0-3.0); HEMOGLOBIN 12.8 g/dl (13.5-17.5); LYMPH # 3.4 10^3/uL (1.5-5.0); LYMPH % 42.5 % (24.0-44.0); MEAN CORPUSCULAR HEMOGLOBIN 19.1 pg (27.0-33.0); MEAN CORPUSCULAR HGB CONC 30.5 g/dl (32.0-36.5); MEAN CORPUSCULAR VOLUME 62.7 fl (80.0-96.0); MONO # 0.5 10^3/uL (0.0-0.8); MONO % 6.7 % (2.0-8.0); NEUTROPHILS # 3.7 10^3/uL (1.5-8.5); NEUTROPHILS % 46.3 % (36.0-66.0); PLATELET COUNT, AUTOMATED 346 10^3/uL (150-450); WHITE BLOOD COUNT 8.1 10^3/uL (4.0-10.0)
[2022-02-05 15:21] LABS: ALBUMIN 4.1 GM/DL (3.2-5.2); ALT/SGPT 110 U/L (12-78); BILIRUBIN,TOTAL 0.5 MG/DL (0.2-1.0); BLOOD UREA NITROGEN 18 MG/DL (7-18); CALCIUM LEVEL 9.9 MG/DL (8.5-10.1); CARBON DIOXIDE LEVEL 28 MEQ/L (21-32); CHLORIDE LEVEL 107 MEQ/L (98-107); FERRITIN 91 NG/ML (26-388); GLOMERULAR FILTRATION RATE > 60.0 (>60); GLUCOSE, FASTING 97 MG/DL (70-100); IRON (FE) 53 UG/DL (65-175); MAGNESIUM LEVEL 2.4 MG/DL (1.8-2.4); POTASSIUM SERUM 4.7 MEQ/L (3.5-5.1); SODIUM LEVEL 141 MEQ/L (136-145); THYROID STIMULATING HORMONE 0.916 uIU/ML (0.358-3.740); TOTAL PROTEIN 6.9 GM/DL (6.4-8.2); VITAMIN B12 LEVEL 527 PG/ML (247-911)
== END ==
LOC: M PLALAB 11:13
PROVIDERS: ATTEND Physician Assistant Medical
DX: D64.9 Anemia, unspecified (principal)

== ENCOUNTER → 2022-07-17 | Outpatient (REF) | payer OTHER | LOC: M LAB REF 20:22 | PROVIDERS: ATTEND Physician Assistant | DX: R30.0 Dysuria (principal) ==

== ENCOUNTER → 2022-08-02 | Outpatient (CLI) | payer OTHER ==
[2022-08-02 10:55] LABS: BASO # 0.1 10^3/uL (0.0-0.2); BASO % 1.1 % (0.0-1.0); EOS # 0.4 10^3/uL (0.0-0.5); EOS % 4.9 % (0.0-3.0); HEMATOCRIT 38.9 % (42.0-52.0); LYMPH # 2.9 10^3/uL (1.5-5.0); LYMPH % 39.8 % (24.0-44.0); MEAN CORPUSCULAR HEMOGLOBIN 19.3 pg (27.0-33.0); MEAN CORPUSCULAR HGB CONC 30.8 g/dl (32.0-36.5); MEAN CORPUSCULAR VOLUME 62.4 fl (80.0-96.0); MONO # 0.6 10^3/uL (0.0-0.8); MONO % 7.5 % (2.0-8.0); NEUTROPHILS # 3.4 10^3/uL (1.5-8.5); NEUTROPHILS % 46.3 % (36.0-66.0); PLATELET COUNT, AUTOMATED 432 10^3/uL (150-450); RED BLOOD COUNT 6.23 10^6/uL (4.30-6.10); WHITE BLOOD COUNT 7.3 10^3/uL (4.0-10.0)
[2022-08-02 11:36] LABS: ALBUMIN 3.6 GM/DL (3.2-5.2); ALT/SGPT 45 U/L (12-78); BILIRUBIN,TOTAL 0.3 MG/DL (0.2-1.0); BLOOD UREA NITROGEN 17 MG/DL (7-18); CALCIUM LEVEL 8.9 MG/DL (8.5-10.1); CARBON DIOXIDE LEVEL 26 MEQ/L (21-32); CHLORIDE LEVEL 109 MEQ/L (98-107); CREATININE FOR GFR 0.87 MG/DL (0.70-1.30); GLOMERULAR FILTRATION RATE > 60.0 (>60); GLUCOSE, FASTING 94 MG/DL (70-100); POTASSIUM SERUM 4.4 MEQ/L (3.5-5.1); SODIUM LEVEL 138 MEQ/L (136-145); TOTAL PROTEIN 6.5 GM/DL (6.4-8.2)
== END ==
LOC: M LAB 10:16
PROVIDERS: ATTEND Physician Assistant
DX: H53.9 Unspecified visual disturbance (principal)

== ENCOUNTER → 2022-08-11 | Outpatient (CLI) | payer OTHER | LOC: M RAD 10:02 | PROVIDERS: ATTEND Physician Assistant | DX: R30.0 Dysuria (principal); N53.12 Painful ejaculation; R35.0 Frequency of micturition ==

== ENCOUNTER 2023-06-08 18:28 | Emergency (ER) | payer OTHER ==
[~2023-06-08] VITALS: Ht 182.9 cm; Wt 94.4 kg
[2023-06-08 18:29] VITALS: BP 113/86; TEMP 97.4; O2SAT 97
[2023-06-08 19:27] LABS: RSV AMPLIFICATION NEGATIVE (NEGATIVE)
[2023-06-08] MEDS ORDERED: BENZ200C70 PO (20:29)
[2023-06-08] MEDS ORDERED: ONDA4TAB6 PO (20:29)
[2023-06-08] MEDS ORDERED: BENZONATATE 100MG CAPSULE PO ONE (20:30)
[2023-06-08] MEDS ORDERED: ONDANSETRON 4MG ORAL DISINTEGRATING TAB PO ONE (20:30)
== END 2023-06-08 20:47 | disposition home or self-care (01) ==
LOC: M ED 18:28
DX: U07.1 COVID-19 (principal)

== ENCOUNTER → 2023-10-07 | Outpatient (CLI) | payer BC ==
[~2023-10-07] MED LIST changes: +BENZ200C70 PO; +ONDA4TAB6 PO
[2023-10-07 16:33] LABS: APPEARANCE, URINE CLEAR (CLEAR); BACTERIA, URINE AUTO NEGATIVE (NEGATIVE); BILIRUBIN, URINE AUTO NEGATIVE (NEGATIVE); BLOOD, URINE BLOOD NEGATIVE (NEGATIVE); COLOR, URINE YELLOW (YELLOW); GLUCOSE, URINE (UA) AUTO NEGATIVE (NEGATIVE); KETONE, URINE AUTO NEGATIVE (NEGATIVE); LEUKOCYTE ESTERASE, URINE AUTO NEGATIVE (NEGATIVE); MUCUS, URINE SMALL (NEGATIVE); NITRITE, URINE AUTO NEGATIVE (NEGATIVE); PROTEIN, URINE AUTO NEGATIVE (NEGATIVE); RBC, URINE AUTO 0 /HPF (0-3); SPECIFIC GRAVITY URINE AUTO 1.017 (1.002-1.035); SQUAMOUS EPITHELIAL CELL UR AU 0 /HPF (0-6); UROBILINOGEN, URINE AUTO 0.2 mg/dL (0.0-2.0); WBC, URINE AUTO 0 /HPF (0-3)
[2023-10-07 16:37] LABS: BASO # 0.1 10^3/uL (0.0-0.2); EOS # 0.3 10^3/uL (0.0-0.5); EOS % 2.8 % (0.0-3.0); HEMATOCRIT 41.1 % (42.0-52.0); HEMOGLOBIN 12.3 g/dl (13.5-17.5); LYMPH # 3.7 10^3/uL (1.5-5.0); MEAN CORPUSCULAR HEMOGLOBIN 18.8 pg (27.0-33.0); MEAN CORPUSCULAR HGB CONC 29.9 g/dl (32.0-36.5); MEAN CORPUSCULAR VOLUME 62.7 fl (80.0-96.0); MONO # 0.7 10^3/uL (0.0-0.8); MONO % 6.1 % (2.0-8.0); NEUTROPHILS # 6.6 10^3/uL (1.5-8.5); NEUTROPHILS % 57.8 % (36.0-66.0); PLATELET COUNT, AUTOMATED 340 10^3/uL (150-450); RED BLOOD COUNT 6.55 10^6/uL (4.30-6.10); WHITE BLOOD COUNT 11.4 10^3/uL (4.0-10.0)
[2023-10-07 17:03] LABS: ALKALINE PHOSPHATASE 71 U/L (46-116); ALT/SGPT 28 U/L (7.0-40); AST/SGOT 15 U/L (<34); BILIRUBIN,TOTAL 0.4 MG/DL (0.3-1.2); BLOOD UREA NITROGEN 16 MG/DL (9-23); CALCIUM LEVEL 9.3 MG/DL (8.5-10.1); CARBON DIOXIDE LEVEL 30 MMOL/L (20-31); CHLORIDE LEVEL 109 MMOL/L (98-107); CREATININE FOR GFR 0.83 MG/DL (0.70-1.30); GLOMERULAR FILTRATION RATE > 60.0 (>60); GLUCOSE, FASTING 80 MG/DL (60-100); IRON (FE) 78 UG/DL (65-175); POTASSIUM SERUM 5.2 MMOL/L (3.5-5.1); SODIUM LEVEL 140 MMOL/L (136-145); TOTAL PROTEIN 6.6 G/DL (5.7-8.2)
[2023-10-07 17:04] LABS: FERRITIN 63.3 NG/ML (10.5-307.3)
== END ==
LOC: M PLALAB 12:42
PROVIDERS: ATTEND Physician Assistant Medical
DX: R71.0 Precipitous drop in hematocrit (principal)

== ENCOUNTER → 2023-10-07 | Outpatient (CLI) | payer BC, OTHER | LOC: M PLARAD 13:44 | PROVIDERS: ATTEND Physician Assistant Medical | DX: S06.0XAS Concussion with loss of consciousness status unknown, sequela (principal); H53.8 Other visual disturbances; H43.393 Other vitreous opacities, bilateral; R51.9 Headache, unspecified; Y93.9 Activity, unspecified; Y92.9 Unspecified place or not applicable ==

== ENCOUNTER → 2024-03-17 | Outpatient (REF) | payer BC ==
[~2024-03-17] MED LIST changes: +ONDA-282 PO; -ONDA4TAB6 PO
[2024-03-17 14:35] LABS: SEMEN APPEARANCE OPAQUE (OPAQUE); SEMEN VISCOSITY LIQUID (LIQUID)
[2024-03-17 14:36] LABS: WBC CONCENTRATION <=1 M/ml (<=1 M/ml)
== END ==
LOC: M SFHCWAGY 14:31
PROVIDERS: ATTEND Advanced Practice Midwife
DX: Z31.9 Encounter for procreative management, unspecified (principal)

== ENCOUNTER 2024-05-10 07:33 | Emergency (ER) | payer BC ==
[~2024-05-10] VITALS: Ht 182.9 cm; Wt 94.3 kg
[2024-05-10] MEDS ORDERED: BACTDSTA (07:52)
[2024-05-10] MEDS ORDERED: ACET-897 PO (07:52)
[2024-05-10] MEDS ORDERED: SERTRALINE (07:52)
[2024-05-10] MEDS ORDERED: FAMO40TA3 (07:52)
[2024-05-10] MEDS ORDERED: SERT25TA21 (07:52)
[2024-05-10 10:09] VITALS: BP 122/80; TEMP 97.2; O2SAT 99
== END 2024-05-10 10:10 | disposition home or self-care (01) ==
LOC: M ED 07:33
DX: L72.0 Epidermal cyst (principal); F41.9 Anxiety disorder, unspecified; F32.A Depression, unspecified; Z79.1 Long term (current) use of non-steroidal anti-inflammatories (NSAID); Z79.899 Other long term (current) drug therapy

== ENCOUNTER 2024-05-19 21:35 | Emergency (ER) | payer BC ==
[~2024-05-19] VITALS: Ht 182.9 cm; Wt 91.9 kg
[2024-05-19 21:35] VITALS: BP 134/88; TEMP 97.9; O2SAT 98
[~2024-05-19 21:35] MED LIST changes: +ACET-897 PO; +BACTDSTA; +FAMO40TA3; +SERT25TA21; +SERTRALINE
== END 2024-05-20 00:02 | disposition left against medical advice (07) ==
LOC: M ED 21:35
DX: Z53.21 Procedure and treatment not carried out due to patient leaving prior to being seen by health care provider (principal)

== ENCOUNTER → 2024-08-20 | Outpatient (CLI) | payer BC | LOC: M RAD 09:47 | PROVIDERS: ATTEND Student in an Organized Health Care Education/Training Program | DX: R06.02 Shortness of breath (principal) ==

== ENCOUNTER → 2025-01-15 | Outpatient (CLI) | payer BC ==
[2025-01-15 10:33] LABS: APPEARANCE, URINE CLEAR (CLEAR); BACTERIA, URINE AUTO NEGATIVE (NEGATIVE); BILIRUBIN, URINE AUTO NEGATIVE (NEGATIVE); BLOOD, URINE BLOOD NEGATIVE (NEGATIVE); COLOR, URINE YELLOW (YELLOW); GLUCOSE, URINE (UA) AUTO NEGATIVE (NEGATIVE); KETONE, URINE AUTO NEGATIVE (NEGATIVE); LEUKOCYTE ESTERASE, URINE AUTO NEGATIVE (NEGATIVE); MUCUS, URINE SMALL (NEGATIVE); NITRITE, URINE AUTO NEGATIVE (NEGATIVE); PROTEIN, URINE AUTO NEGATIVE (NEGATIVE); RBC, URINE AUTO 0 /HPF (0-3); SPECIFIC GRAVITY URINE AUTO 1.023 (1.002-1.035); SQUAMOUS EPITHELIAL CELL UR AU 0 /HPF (0-6); UROBILINOGEN, URINE AUTO 0.2 mg/dL (0.0-2.0); WBC, URINE AUTO 0 /HPF (0-3)
[2025-01-15 10:38] LABS: BASO # 0.1 10^3/uL (0.0-0.2); BASO % 1.1 % (0.0-1.0); EOS # 0.2 10^3/uL (0.0-0.5); EOS % 2.6 % (0.0-3.0); HEMATOCRIT 40.4 % (42.0-52.0); HEMOGLOBIN 12.7 g/dl (13.5-17.5); LYMPH # 2.5 10^3/uL (1.5-5.0); LYMPH % 34.7 % (24.0-44.0); MEAN CORPUSCULAR HGB CONC 31.4 g/dl (32.0-36.5); MEAN CORPUSCULAR VOLUME 60.6 fl (80.0-96.0); MONO # 0.5 10^3/uL (0.0-0.8); MONO % 6.2 % (2.0-8.0); NEUTROPHILS % 55.1 % (36.0-66.0); PLATELET COUNT, AUTOMATED 393 10^3/uL (150-450); RED BLOOD COUNT 6.67 10^6/uL (4.30-6.10); WHITE BLOOD COUNT 7.3 10^3/uL (4.0-10.0)
[2025-01-15 11:02] LABS: HEMOGLOBIN A1c 4.7 % (4.0-6.0)
[2025-01-15 11:05] LABS: ALBUMIN 4.1 G/DL (3.2-5.2); ALKALINE PHOSPHATASE 83 U/L (40-129); ALT/SGPT 25 U/L (7.0-40); AST/SGOT 17 U/L (<34); BILIRUBIN,TOTAL 0.4 MG/DL (0.3-1.2); BLOOD UREA NITROGEN 20 MG/DL (9-23); CALCIUM LEVEL 9.2 MG/DL (8.5-10.1); CARBON DIOXIDE LEVEL 25 MMOL/L (20-31); CHLORIDE LEVEL 106 MMOL/L (98-107); CHOLESTEROL LEVEL 156 MG/DL (<200); CHOLESTEROL RISK RATIO 3.86 (<5); CREATININE FOR GFR 0.94 MG/DL (0.70-1.30); GLOMERULAR FILTRATION RATE > 90.0 (>60); GLUCOSE, FASTING 93 MG/DL (60-100); HDL CHOLESTEROL 40.4 MG/DL (>40); LDL CHOLESTEROL 107.2 MG/DL (<100); NON-HDL-C 115.6 MG/DL; POTASSIUM SERUM 4.6 MMOL/L (3.5-5.1); SODIUM LEVEL 140 MMOL/L (136-145); TOTAL PROTEIN 7.2 G/DL (5.7-8.2); TRIGLYCERIDES LEVEL 42 MG/DL (<150)
[2025-01-15 11:06] LABS: FREE T4 0.99 NG/DL (0.89-1.76); THYROID STIMULATING HORMONE 1.366 uIU/ML (0.55-4.78)
[2025-01-15 11:15] LABS: THYROID PEROXIDASE ANTIBODY 41 U/ML (<60.0)
[2025-01-16 13:37] LABS: PSA FREE 0.2 ng/mL; PSA TOTAL 0.4 ng/mL (< OR = 4.0)
== END ==
LOC: M PLALAB 07:56
PROVIDERS: ATTEND Registered Nurse
DX: Z00.00 Encounter for general adult medical examination without abnormal findings (principal); R35.0 Frequency of micturition

== ENCOUNTER → 2025-01-23 | Outpatient (CLI) | payer BC ==
[2025-01-23 14:22] LABS: PERCENT SATURATION 18.3 % (19.7-50.0)
[2025-01-23 14:24] LABS: FERRITIN 56.6 NG/ML (10.5-307.3)
== END ==
LOC: M PLALAB 09:24
PROVIDERS: ATTEND Registered Nurse
DX: D64.9 Anemia, unspecified (principal)

== ENCOUNTER → 2025-07-16 | Outpatient (REF) | payer BC ==
[2025-07-17 10:38] LABS: IRON (FE) 78.0 UG/DL (65-175)
[2025-07-17 10:40] LABS: PERCENT SATURATION 24.8 % (19.7-50.0)
[2025-07-21 19:37] LABS: LYME TOTAL ANTIBODY CIA <= 0.90 Index (<=0.90)
== END ==
LOC: M LAB REF 17:22
PROVIDERS: ATTEND Physician Assistant Medical
DX: R63.4 Abnormal weight loss (principal); R53.83 Other fatigue

== ENCOUNTER → 2025-07-30 | Outpatient (CLI) | payer BC ==
[~2025-07-30] MED LIST changes: +ISOVUE-370 76% 100 ML VIAL As Ordered ONE
== END ==
LOC: M RAD 16:49
PROVIDERS: ATTEND Physician Assistant Medical
DX: R11.2 Nausea with vomiting, unspecified (principal); R63.4 Abnormal weight loss
CPT/HCPCS: 74177; Q9967

== ENCOUNTER 2025-09-28 09:38 | Emergency (ER) | payer BC ==
[~2025-09-28] VITALS: Ht 182.9 cm; Wt 83.3 kg
[~2025-09-28 09:38] MED LIST changes: -BACTDSTA; -FAMO40TA3; +FAMO40TA3 PO; -ISOVUE-370 76% 100 ML VIAL As Ordered ONE; +SULF-8
[2025-09-28] MEDS ORDERED: ZOLO100T PO (09:46)
[2025-09-28] MEDS ORDERED: LISD40CA PO (09:46)
[2025-09-28] MEDS ORDERED: ISOVUE-370 76% 100 ML VIAL As Ordered ONE (12:36)
[2025-09-28 12:37] LABS: BASO # 0.0 10^3/uL (0.0-0.2); BASO % 0.5 % (0.0-1.0); EOS # 0.1 10^3/uL (0.0-0.5); EOS % 1.6 % (0.0-3.0); LYMPH # 1.4 10^3/uL (1.5-5.0); LYMPH % 22.2 % (24.0-44.0); MONO # 0.6 10^3/uL (0.0-0.8); MONO % 9.4 % (2.0-8.0); NEUTROPHILS # 4.2 10^3/uL (1.5-8.5); NEUTROPHILS % 66.1 % (36.0-66.0); PLATELET COUNT, AUTOMATED 291 10^3/uL (150-450)
[2025-09-28 12:56] LABS: ETHYL ALCOHOL (ETHANOL) < 0.003 % (0.000-0.010)
[2025-09-28 12:58] LABS: CALCIUM LEVEL 9.3 MG/DL (8.5-10.1); CARBON DIOXIDE LEVEL 26 MMOL/L (20-31); CHLORIDE LEVEL 106 MMOL/L (98-107); CREATININE FOR GFR 0.81 MG/DL (0.70-1.30); GLOMERULAR FILTRATION RATE > 90.0 (>60); MAGNESIUM LEVEL 2.1 MG/DL (1.8-2.4); POTASSIUM SERUM 4.0 MMOL/L (3.5-5.1); SODIUM LEVEL 138 MMOL/L (136-145)
[2025-09-28 12:59] LABS: CK-MB VALUE MASS 1.3 NG/ML (<3.6)
[2025-09-28 13:03] LABS: CPK CREATINE PHOSPHOKINASE 72 U/L (46-171); MB/CK RELATIVE INDEX 1.80 (< OR =4)
[2025-09-28 14:01] LABS: CK-MB VALUE MASS 1.5 NG/ML (<3.6)
[2025-09-28] MEDS ORDERED: HOME MED LIST COMPLETE! XX SCH (14:05)
[2025-09-28 14:10] LABS: CPK CREATINE PHOSPHOKINASE 67.0 U/L (46-171); MB/CK RELATIVE INDEX 2.23 (< OR =4)
[2025-09-28 16:28] LABS: IRON (FE) 18 UG/DL (65-175); PERCENT SATURATION 6.0 % (19.7-50.0)
[2025-09-28] MEDS: KETOROLAC 30 MG/ML 1 ML VIAL IV ONE (16:29)
[2025-09-28] MEDS: NS (Normal Saline) 0.9% 1,000 ML IV ONE (16:29)
[2025-09-28 16:31] LABS: VITAMIN B12 LEVEL 546 PG/ML (211-911)
[2025-09-28 16:47] LABS: BARBITURATES URINE NEGATIVE (NEGATIVE); BENZODIAZEPINES URINE NEGATIVE (NEGATIVE); COCAINE METABOLITE URINE NEGATIVE (NEGATIVE); METHADONE URINE NEGATIVE (NEGATIVE); OPIATES URINE NEGATIVE (NEGATIVE); PHENCYCLIDINE URINE NEGATIVE (NEGATIVE)
[2025-09-28 16:54] LABS: AMPHETAMINES LEVEL URINE POSITIVE (NEGATIVE); CANNABINOIDS URINE POSITIVE (NEGATIVE)
[2025-09-28 19:57] VITALS: BP 142/69; TEMP 97.8; O2SAT 96
[2025-09-28] MEDS: PANTOPRAZOLE 40MG VIAL IV ONE (20:08)
[2025-09-28] MEDS: SUCRALFATE 1 GM TAB PO ONE (20:08)
[2025-09-28] MEDS ORDERED: FERR325T3 PO (20:16)
[2025-09-28] MEDS ORDERED: PROT1TAB2 PO (20:16)
[2025-09-28] MEDS ORDERED: CARA1TAB6 PO (20:16)
[2025-10-02 02:27] LABS: BORRELIA SPECIES DNA NOT DETECTED (NOT DETECT)
== END 2025-09-28 21:04 | disposition home or self-care (01) ==
LOC: M ED 09:38
DX: R42 Dizziness and giddiness (principal); D50.9 Iron deficiency anemia, unspecified; R53.1 Weakness; K21.9 Gastro-esophageal reflux disease without esophagitis; F90.9 Attention-deficit hyperactivity disorder, unspecified type; F41.9 Anxiety disorder, unspecified; F32.A Depression, unspecified; F12.10 Cannabis abuse, uncomplicated; Z86.711 Personal history of pulmonary embolism; Z79.1 Long term (current) use of non-steroidal anti-inflammatories (NSAID); Z79.899 Other long term (current) drug therapy
CPT/HCPCS: 70450; 70491; 70544; 70547; 70551; 71045; 71275; 74177; 80048; 80307; 82077; 82550; 82553; 82607; 82728; 82746; 83550; 83735; 84443; 84484; 85025; 87468; 87469; 87478; 87484; 87486; 87581; 87633; 87798; 87801; 93005; 93041; 94760; 96361; 96374; 96375; 99285; J1885; J2470; Q9967